=== PATIENT | female | born 1970 | race Caucasian/White ===

== ENCOUNTER → 2018-07-09 14:38 | Outpatient (CLI) | payer OTHER, SELFPAY ==
[2016-02-18 13:38] VITALS: BMI 46.0
[2018-07-09 15:53] LABS: Absolute Lymphocyte Count 2.04 X10^3/ul (0.83-4.51); Absolute Neutrophil Count 5.2 X10^3/uL (2.0-7.7); Basophil# 0.05 X10^3/uL; Basophil% 0.6 % (0-1); Eosinophil# 0.31 X10^3/uL; Eosinophils% 3.8 % (0-5); Hematocrit 42.5 % (37-47); Hemoglobin 14.2 g/dl (12.0-15.0); Lymphocyte # 2.04 X10^3/ul (4.0); Mean Corp Hgb Conc 33.4 g/gl (32-36); Mean Corpuscular Hgb 29.5 pg (27.0-32.0); Mean Corpuscular Volume 88.2 fL (81-99); Mean Platelet Vol. 10.4 fl (6.2-12.0); Monocyte# 0.58 X10^3/uL; Monocyte% 7.1 % (0-10); Neutrophil # 5.17 X10^3/uL (2.7-7.7); Neutrophil % 63.3 % (47-70); Platelet Count 249 K/mm3 (150-450); RBC Distribution Width CV 13.6 % (11.6-14.6); RBC Distribution Width SD 43.8 fl (35.1-43.9); Red Blood Count 4.82 M/mm3 (4.2-5.4); White Blood Count 8.2 K/mm3 (4.4-11.0)
[2018-07-09 16:03] LABS: POSITIVE COUNT NO; POSITIVE DIFFERENTIAL NO; POSITIVE MORPHOLOGY NO
[2018-07-09 16:30] LABS: ALB/GLOB Ratio 0.9 RATIO (0.9-2.4); AST(SGOT) 13 U/L (15-37); Alanine Aminotransfer ALT/SGPT 20 U/L (13-56); Albumin, Serum 3.8 g/dL (3.2-5.0); Alkaline Phosphatase 61 U/L (45-117); Anion Gap 6 (5-15); BUN 14 mg/dL (7-18); BUN/Creat Ratio 23.6 RATIO (10-20); Calcium,Total 9.6 mg/dL (8.5-10.1); Chloride 104 mmol/L (98-107); Creatinine, Serum 0.59 mg/dL (0.55-1.02); EST Glomerular Filtration Rate 114 mL/min (>60); Est Glom Filt Rate - Afr Amer 138 mL/min (>60); Globulin 4.1 g/dL (2.2-4.2); Glucose 96 mg/dL (74-106); Protein, Total 7.9 g/dL (6.4-8.2); Sodium Level 141 mmol/L (136-145)
== END ==
PROVIDERS: Visit Provider Family Medicine
DX: R10.9 Unspecified abdominal pain (principal)
CPT/HCPCS: 36415; 80053; 85025

== ENCOUNTER → 2018-07-10 09:53 | Outpatient (CLI) | payer OTHER, SELFPAY ==
[2016-02-18 13:38] VITALS: BMI 46.0
--- NOTE | 2018-07-10 10:02 | US_ITS ---
STUDY: ABDOMINAL ULTRASOUND - RIGHT UPPER QUADRANT REASON FOR VISIT: Female, 48 years old. Epigastric pain TECHNIQUE: Ultrasound evaluation of the right upper quadrant was performed with real-time and static dill-scale imaging. TECHNICAL QUALITY: Adequate. COMPARISON: None. FINDINGS: Liver: The liver measures 18.7 cm. There is increased echogenicity consistent with fatty infiltration. The bile ducts are within normal limits. There is hepatic color flow. The direction of portal flow is hepatopetal. There is no demonstrated mass lesion. Gallbladder: Normal distended gallbladder. The gallbladder wall measures 2.2 mm. There is a negative sonographic 's sign. There is no pericholecystic fluid. There are no gallstones. Common Bile Duct (C.B.D.): The common bile duct measures 2.9 mm. Pancreas: Normal size of the head, body and tail of the pancreas. There is normal echogenicity of the pancreas. There is no demonstrated pancreatic mass or cyst. Right Kidney: Normal size of the right kidney. The right kidney measures 10.9 x 5.4 x 5.2 cm. Normal renal cortex. The right cortex measures 1.5 cm. There is no demonstrated renal mass or cyst. There is no right hydronephrosis. US/Abdomen Limited IMPRESSION: There is fatty infiltration of the liver. There is NO cholelithiasis, cholecystitis or biliary ductal dilatation. Electronically Signed: Manuel Sim MD at 5:43 EDT , Service support ,
== END ==
PROVIDERS: Family Provider Family Medicine; PCP Family Medicine; Referring Provider Family Medicine; Visit Provider Family Medicine
DX: R10.9 Unspecified abdominal pain (principal)
CPT/HCPCS: 76705

== ENCOUNTER → 2018-08-05 | Outpatient (CLI) | payer OTHER, SELFPAY ==
[2016-02-18 13:38] VITALS: BMI 46.0
--- NOTE | 2018-08-05 13:16 | RAD_ITS ---
STUDY: X-RAY - LEFT HAND, ATTENTION FIRST FINGER REASON FOR EXAM: Female, 48 years old. Base of thumb pain TECHNIQUE: 3 view(s) of the finger were obtained. COMPARISON: None. FINDINGS: There are mild degenerative changes of the first metacarpal greater multangular joint. There is an old chip fracture of the base of the first distal phalanx. The soft tissues are within normal limits. RAD/Finger(s) Min 2 Views IMPRESSION: Mild degenerative changes of the first metacarpal greater multangular joint. Old chip fracture of the base of the first distal phalanx. Electronically Signed: Dwayne Santos MD at 23:25 EDT , Service support ,
--- NOTE | 2018-08-05 13:16 | RAD_ITS ---
STUDY: X-RAY - RIGHT HAND, ATTENTION FIRST FINGER REASON FOR EXAM: Female, 48 years old. Base of thumb pain TECHNIQUE: 3 view(s) of the finger were obtained. COMPARISON: None. FINDINGS: There are mild arthritic changes of the first metacarpal greater multangular joint. There are mild arthritic changes of the first metacarpophalangeal joint. There is no evidence of fracture or dislocation. RAD/Finger(s) Min 2 Views IMPRESSION: Mild arthritic changes of the first metacarpal greater multangular joint and first metacarpophalangeal joint. Electronically Signed: Dwayne Santos MD at 23:26 EDT , Service support ,
== END | disposition home or self-care (01) ==
LOC: MTRAD 13:12
PROVIDERS: Family Provider Family Medicine; PCP Family Medicine; Referring Provider Family Medicine; Visit Provider Family Medicine
DX: M79.644 Pain in right finger(s) (principal); M79.645 Pain in left finger(s)
CPT/HCPCS: 73140

== ENCOUNTER → 2018-11-17 08:54 | Outpatient (CLI) | payer OTHER, SELFPAY ==
[2018-11-17 10:03] LABS: Absolute Lymphocyte Count 1.85 X10^3/uL (0.83-4.51); Absolute Neutrophil Count 3.3 X10^3/uL (2.0-7.7); Basophil# 0.04 X10^3/uL; Basophil% 0.7 % (0-1); Eosinophil# 0.18 X10^3/uL; Hematocrit 42.6 % (37-47); Hemoglobin 13.8 g/dL (12.0-15.0); Lymphocyte # 1.85 X10^3/ul (4.0); Lymphocyte % 30.9 % (19-41); Mean Corp Hgb Conc 32.4 g/dL (32-36); Mean Corpuscular Hgb 28.7 pg (27.0-32.0); Mean Corpuscular Volume 88.6 fL (81-99); Mean Platelet Vol. 10.4 fl (6.2-12.0); Monocyte# 0.56 X10^3/uL; Monocyte% 9.4 % (0-10); NRBC Flagged by Analyzer 0 % (0-5); Neutrophil # 3.34 X10^3/uL (2.7-7.7); Neutrophil % 55.8 % (47-70); Platelet Count 202 K/mm3 (150-450); RBC Distribution Width CV 13.9 % (11.6-14.6); Red Blood Count 4.81 M/mm3 (4.2-5.4)
[2018-11-17 10:04] LABS: Erythrocyte Sedimentation Rate 8 mm/hr (0-20)
[2018-11-17 10:34] LABS: Anion Gap 4 (5-15); BUN 10 mg/dL (7-18); BUN/Creat Ratio 15.4 RATIO (10-20); CRP, High Sensitivity Cardiac 5.08 mg/L; Chloride 106 mmol/L (98-107); Creatinine, Serum 0.65 mg/dL (0.55-1.02); EST Glomerular Filtration Rate 103 mL/min (>60); Est Glom Filt Rate - Afr Amer 124 mL/min (>60); Glucose 93 mg/dL (74-106); Potassium 3.9 mmol/L (3.5-5.1); Sodium Level 141 mmol/L (136-145); Thyroid Stim Hormone (TSH) 2.59 uIU/mL (0.358-3.74)
[2018-11-18 16:06] LABS: ANTINUCLEAR ANTIBODIES DIRECT Negative (Negative)
== END ==
PROVIDERS: Family Provider Family Medicine; PCP Family Medicine; Referring Provider Family Medicine; Visit Provider Family Medicine
DX: I10 Essential (primary) hypertension (principal); R53.83 Other fatigue; M25.50 Pain in unspecified joint
CPT/HCPCS: 36415; 80048; 83735; 84443; 85025; 85652; 86038; 86141

== ENCOUNTER → 2019-01-07 10:05 | Outpatient (CLI) | payer OTHER, SELFPAY ==
--- NOTE | 2019-01-07 10:08 | BI_ITS ---
MAMMOGRAPHY - BILATERAL SCREENING - CAD and LEON IMAGES REASON FOR EXAM: Female, 48 years old. Routine annual screening examination. PERTINENT HISTORY: Non-contributory. TECHNIQUE: Digital examination. Mediolateral oblique (MLO) and craniocaudad (CC) views of both breasts were obtained. CAD: CAD was performed on this study. Leon images were reviewed. COMPARISON: Mammogram dated 06/17/2017 03/13/2016 FINDINGS: Breast Composition: The breasts are almost entirely fatty. There are no suspicious masses, suspicious cluster of microcalcifications, architectural distortion or secondary sign of malignancy identified in either breast. Focal fibroglandular densities are noted bilaterally. No other significant abnormalities are identified. CAD and Leon were reviewed. BI/SCREEN MAMM (CAD) W/LEON BILAT IMPRESSION: Stable bilateral screening mammogram. ASSESSMENT CATEGORY: BIRADS Category 2: Benign. A letter regarding these results will be sent to the patient by the facility within 30 days. FOLLOW UP RECOMMENDATION: Yearly follow up mammogram recommended. (A) Approximately 10% of breast cancers are not detected by mammography. A normal mammogram should not delay biopsy of a clinically suspicious abnormality. [id number] Electronically Signed: Yas Parks DO at 10:25 EST Tel , Service support ,
== END ==
PROVIDERS: Family Provider Family Medicine; PCP Family Medicine; Referring Provider Family Medicine; Visit Provider Family Medicine
DX: Z12.31 Encounter for screening mammogram for malignant neoplasm of breast (principal)
CPT/HCPCS: 77063; 77067

== ENCOUNTER 2019-08-11 19:18 | Emergency (ER) | payer OTHER, SELFPAY ==
[2019-07-08 09:39] VITALS: BMI 46.0
[2019-08-11 19:20] VITALS: BP 118/63; PULSE 108; RESP 18; TEMP 39.3; O2SAT 93; BMI 42.1
--- NOTE | 2019-08-11 19:29 | EKG12_ITS ---
Test Reason : FEVER Blood Pressure : / mmHG Vent. Rate : 092 BPM Atrial Rate : 092 BPM P-R Int : 146 ms QRS Dur : 090 ms QT Int : 354 ms P-R-T Axes : 019 001 007 degrees QTc Int : 437 ms Normal sinus rhythm Nonspecific ST abnormality Abnormal ECG Confirmed by KATLYN SCOTT ([id number]), writer editor CHICA ANDERSON ([id number]) on 08/18/2019 8:09:08 AM Referred By: DANYELLE Confirmed By:KATLYN SCOTT
--- NOTE | 2019-08-11 19:30 | ED.DCSUM_ITS ---
History of Present Illness Chief Complaint: Fever Informant: Patient Onset: Days Context: Gradual Onset Timing: Continuous Current Severity: Moderate Maximum Severity: Moderate Narrative: The patient is a 49-year-old female who is otherwise healthy the presents to the emergency department fever, chills, nausea, generalized malaise. The patient states over the weekend, she had some dysuria and frequency. She states that is since resolved, but she is now begun to have fevers and chills. She has been nauseated with decreased appetite. She denies any cough or shortness of breath. She has no known exposure to COVID-19. She states she is otherwise been in her normal state of health. Prior similar symptoms: No Recent Illness/Hospitalization: No Past Medical History - Allergies and Home Meds Allergies/Adverse Reactions: Allergies No Known Allergies Allergy (Verified 08/11/19 19:19) Primary Care Physician: Darryl Amezcua MD [Primary Care Provider] - Prior records reviewed: Yes Past Medical History: - - Neuropathy Surgical History: noncontributory Smoking Status: Former smoker Review of Systems General: Reports: Chills, Fever. Denies: Sweats Eyes: Denies: Visual changes - bilaterally, Diplopia ENT: Denies: Rhinorrhea, Sore throat Cardiovascular: Denies: Chest pain, Palpitations Respiratory: Denies: Dyspnea, Cough, Dyspnea on exertion Gastrointestinal: Reports: Nausea. Denies: Abdominal pain, Vomiting, Diarrhea, Melena, Hematochezia Genitourinary: Reports: Dysuria, Frequency. Denies: Hematuria Musculoskeletal: Denies: Back pain, Extremity Pain Skin: Denies: Rash, Wounds Neurological: Denies: Headache, Weakness, Numbness Physical Exam Vital Signs/Narrative: Vital Signs Temp Pulse Resp BP Pulse Ox 08/11/19 19:20 102.8 F H 108 H 18 118/63 93 Inital Vital Signs reviewed: Yes General: Well nourished, Well developed, No Acute Distress Head: Normocephalic, Atraumatic Eyes: Perrl, EOMI ENT: Moist mucous membranes, No rhinorrhea Neck: Supple, Nontender Cardiovascular: Regular rate, Regular rhythm, No murmurs Respiratory: No distress, CTA bilaterally, Chest nontender Abdomen: Soft, Nontender, Nondistended, Normal bowel sounds Back: Nontender, Normal Inspection Extremities: Nontender, No edema Skin: Normal color, No rash Neurological: Alert, Oriented x3, Cranial nerves II-XII grossly intact, Normal Strength, Normal Sensation Psychological: Normal affect, Normal Mood Diagnostic/Tx/Re-eval Clinical Impression(s) from Imaging Studies Chest X-Ray 08/11/19 20:10 IMPRESSION: Normal x-ray examination of the chest. Electronically Signed: Cisco Hall, at 20:43 EDT Tel , Service support , Abnormal Lab Results 08/11/19 08/11/19 08/11/19 19:45 19:45 19:45 WBC 6.0 RBC 4.83 Hgb 13.7 Hct 42.2 MCV 87.4 MCH 28.4 MCHC 32.5 RDW Std Deviation 44.9 H RDW Coeff of Fe 13.9 Plt Count 118 L MPV 10.1 Immature Gran % (Auto) 0.300 Neut % (Auto) 82.5 H Lymph % (Auto) 5.2 L Blount % (Auto) 11.6 H Eos % (Auto) 0.2 Baso % (Auto) 0.2 Absolute Neuts (auto) 4.9 Absolute Lymphs (auto) 0.31 L Nucleated RBC % 0 Differential Comment SCANNED PT 13.9 INR 1.1 APTT 29.2 Sodium 140 Potassium 3.1 L Chloride 105 Carbon Dioxide 27.0 Anion Gap 8 BUN 8 Creatinine 0.79 Estim Creat Clear Calc 95.22 Est GFR (MDRD) Af Amer 99 Est GFR (MDRD) Non-Af 82 BUN/Creatinine Ratio 10.2 Glucose 114 H Lactic Acid Calcium 8.7 Total Bilirubin 1.90 H AST 20 ALT 22 Alkaline Phosphatase 63 Total Protein 7.7 Albumin 3.4 Globulin 4.3 H Albumin/Globulin Ratio 0.8 L Urine Color Urine Clarity Urine pH Ur Specific [place] Urine Protein Urine Glucose (UA) Urine Ketones Urine Occult Blood Urine Nitrite Urine Bilirubin Urine Urobilinogen Ur Leukocyte Esterase Urine RBC Urine WBC Ur Squamous Epith Cells Urine Bacteria Urine Mucus COVID-19 (MARISELA) 08/11/19 08/11/19 08/11/19 19:45 19:55 21:30 WBC RBC Hgb Hct MCV MCH MCHC RDW Std Deviation RDW Coeff of Fe Plt Count MPV Immature Gran % (Auto) Neut % (Auto) Lymph % (Auto) Blount % (Auto) Eos % (Auto) Baso % (Auto) Absolute Neuts (auto) Absolute Lymphs (auto) Nucleated RBC % Differential Comment PT INR APTT Sodium Potassium Chloride Carbon Dioxide Anion Gap BUN Creatinine Estim Creat Clear Calc Est GFR (MDRD) Af Amer Est GFR (MDRD) Non-Af BUN/Creatinine Ratio Glucose Lactic Acid 1.3 Calcium Total Bilirubin AST ALT Alkaline Phosphatase Total Protein Albumin Globulin Albumin/Globulin Ratio Urine Color Yellow Urine Clarity Sl. Cloudy Urine pH 6.5 Ur Specific [place] 1.005 Urine Protein 30 H Urine Glucose (UA) Normal Urine Ketones Negative Urine Occult Blood 25 H Urine Nitrite Positive H Urine Bilirubin Negative Urine Urobilinogen 4 H Ur Leukocyte Esterase 500 H Urine RBC 5-10 SEEN Urine WBC 50-100 SEEN Ur Squamous Epith Cells 0-5 SEEN Urine Bacteria 3+ Urine Mucus 0 SEEN COVID-19 (MARISELA) Negative - Medical Decision Making The patient presents to the emergency department fever and generalized malaise. She was febrile here. She was not hypotensive. Sepsis work-up was pursued. Chest x-ray shows no and so volume overload. COVID testing was obtained was negative. Patient does not have leukocytosis. Lactic acid was normal. Her urine does show evidence of infection. Clinically, I do feel that she likely has pyelonephritis. On reevaluation, her fever has resolved. She is feeling improved. She wants to attempt outpatient therapy. I do feel that this is reasonable. She has reassuring vital signs, normal lactic acid, and otherwise normal lab work. She is given IV Rocephin and will be continued on Bactrim as an outpatient. She was counseled on concerning symptoms and appropriate follow- up. I did tell her that I would like her to be seen within the next 24 to 48 hours, or if she is having a worsening symptoms return to the emergency department. She is comfortable with this plan of care. Impression 1. Pyelonephritis ED Disposition - Plan for ED Patient: Instructions: ED Pyelonephritis Female Adult Prescriptions: Smz/Tmp Ds [Bactrim Ds] 1 tab PO BID #14 tab Prescription Printed Referrals: Darryl Amezcua MD [Primary Care Provider] -
--- NOTE | 2019-08-11 19:39 | ED.RN ---
NO OLD EKGS IN MUSE
[2019-08-11 19:48] VITALS: BP 111/65; PULSE 97; RESP 21; TEMP 39.3; O2SAT 93
[2019-08-11] MEDS: 0.9% Normal Saline 1,000 ML 999 ML IV (19:54)
[2019-08-11] MEDS: Ondansetron 4 MG/2 ML Vial IV (19:54)
[2019-08-11] MEDS: Acetaminophen 500 MG Tablet 1000 MG PO (19:55)
--- NOTE | 2019-08-11 20:10 | RAD_ITS ---
STUDY: X-RAY CHEST REASON FOR EXAM: Female, 49 years old. FEVER,HERRON, CHILS,DIZZZINESS TECHNIQUE: Frontal view of the chest COMPARISON: None. FINDINGS: Inspiratory volumes are low The lungs are clear and expanded. There is no demonstrated pleural abnormality. Normal size heart. Normal mediastinum and jos. Normal visualized pulmonary arteries. Normal visualized aortic arch and descending thoracic aorta. Normal visualized thoracic spine. Normal visualized ribs, clavicles, and shoulders. There is no demonstrated abnormality of the visualized soft tissue structures of the upper abdomen. RAD/Chest 1 View (Portable) IMPRESSION: Normal x-ray examination of the chest. Electronically Signed: Cisco Hall, at 20:43 EDT Tel , Service support ,
[2019-08-11 20:17] LABS: Absolute Lymphocyte Count 0.31 X10^3/uL (0.83-4.51); Absolute Neutrophil Count 4.9 X10^3/uL (2.0-7.7); Basophil# 0.01 X10^3/uL; Basophil% 0.2 % (0-1); Eosinophil# 0.01 X10^3/uL; Eosinophils% 0.2 % (0-5); Hematocrit 42.2 % (37-47); Hemoglobin 13.7 g/dL (12.0-15.0); Lymphocyte # 0.31 X10^3/ul (4.0); Lymphocyte % 5.2 % (19-41); Mean Corp Hgb Conc 32.5 g/dL (32-36); Mean Corpuscular Hgb 28.4 pg (27.0-32.0); Mean Corpuscular Volume 87.4 fL (81-99); Mean Platelet Vol. 10.1 fl (6.2-12.0); Monocyte# 0.69 X10^3/uL; Monocyte% 11.6 % (0-10); NRBC Flagged by Analyzer 0 % (0-5); Neutrophil # 4.92 X10^3/uL (2.7-7.7); Neutrophil % 82.5 % (47-70); POSITIVE DIFFERENTIAL YES; Platelet Count 118 K/mm3 (150-450); RBC Distribution Width CV 13.9 % (11.6-14.6); RBC Distribution Width SD 44.9 fl (35.1-43.9); Red Blood Count 4.83 M/mm3 (4.2-5.4)
[2019-08-11 20:25] LABS: Differential Indicated SCAN CRITERIA MET
[2019-08-11 20:26] LABS: International Normalized Ratio 1.1; Partial Thromboplast Time 29.2 Seconds (24.1-36.2); Prothrombin Time (Protime)PT. 13.9 SECONDS (11.7-14.9)
[2019-08-11 20:29] LABS: ALB/GLOB Ratio 0.8 RATIO (0.9-2.4); AST(SGOT) 20 U/L (15-37); Alanine Aminotransfer ALT/SGPT 22 U/L (13-56); Albumin, Serum 3.4 g/dL (3.2-5.0); Alkaline Phosphatase 63 U/L (45-117); Anion Gap 8 (5-15); BUN 8 mg/dL (7-18); BUN/Creat Ratio 10.2 RATIO (10-20); Calcium,Total 8.7 mg/dL (8.5-10.1); Chloride 105 mmol/L (98-107); Creatinine, Serum 0.79 mg/dL (0.55-1.02); EST Glomerular Filtration Rate 82 mL/min (>60); Est Glom Filt Rate - Afr Amer 99 mL/min (>60); Estimated Creatinine Clearance 95.22 ml/min; Globulin 4.3 g/dL (2.2-4.2); Glucose 114 mg/dL (74-106); Potassium 3.1 mmol/L (3.5-5.1); Protein, Total 7.7 g/dL (6.4-8.2); Sodium Level 140 mmol/L (136-145)
[2019-08-11 20:40] LABS: Lactic Acid 1.3 mmol/L (0.4-1.9)
[2019-08-11 20:48] LABS: Differential Comment SCANNED
[2019-08-11 21:22] VITALS: BP 96/57; PULSE 85; RESP 17; TEMP 37.1; O2SAT 95
[2019-08-11 21:29] VITALS: TEMP 37.1
[2019-08-11 21:34] LABS: Probe Check PASS; Specimen Processing Control PASS
[2019-08-11 21:42] LABS: Mucous, Urine 0 SEEN /hpf (<or=2+)
[2019-08-11 21:49] LABS: Color, Urine Yellow (Yellow); Glucose, Dipstick Normal (Normal); Ketone-Dipstick Negative (Negative); Leukocyte Esterase-Dipstick 500 /ul (Negative); Nitrite-Dipstick Positive (Negative); Occult Blood-Urine 25 /ul (Negative); Protein-Dipstick 30 mg/dl (Negative); Specific Gravity, Urine 1.005 (1.002-1.030); Urine Bilirubin Dipstick Negative (Negative); Urine Clarity Sl. Cloudy (Clear); Urine Urobilinogen 4 mg/dl (Normal); Urine pH 6.5 (5.0 - 8.0)
[2019-08-11 21:58] LABS: Bacteria 3+ /hpf (None Seen); Red Blood Cells-Urine 5-10 SEEN /hpf (0-5); Squamous Epithelial Cells - UA 0-5 SEEN /hpf (5-10); White Blood Cells 50-100 SEEN /hpf (0-5)
[2019-08-11 22:00] VITALS: BP 98/58; PULSE 83; RESP 19; TEMP 37.2; O2SAT 94
[2019-08-11] MEDS: Ceftriaxone 1 GM/50 ML BAG IV (22:24)
[2019-08-11 23:07] VITALS: BP 97/69; PULSE 72; RESP 16; O2SAT 98
== END 2019-08-11 23:10 | disposition home or self-care (01) ==
PROVIDERS: Emergency Provider Emergency Medicine; PCP Family Medicine
DX: N12 Tubulo-interstitial nephritis, not specified as acute or chronic (principal); G62.9 Polyneuropathy, unspecified; Z87.891 Personal history of nicotine dependence
CPT/HCPCS: 36415; 71045; 80053; 81001; 83605; 85025; 85610; 85730; 87040; 87077; 87086; 87088; 87186; 87635; 93005; 96361; 96365; 96375; 99284; G2023; J7030; J7050; A4216; J2405; U0003

== ENCOUNTER → 2020-04-21 13:13 | Outpatient (CLI) | payer OTHER, SELFPAY ==
[2020-04-21 18:01] LABS: Mucous, Urine 0 SEEN /hpf (<or=2+)
[2020-04-21 18:57] LABS: Color, Urine Yellow (Yellow); Glucose, Dipstick Normal (Normal); Ketone-Dipstick Negative (Negative); Leukocyte Esterase-Dipstick 100 /ul (Negative); Nitrite-Dipstick Negative (Negative); Occult Blood-Urine 250 /ul (Negative); Protein-Dipstick Negative (Negative); Urine Bilirubin Dipstick Negative (Negative); Urine Clarity Clear (Clear); Urine Urobilinogen Normal (Normal)
[2020-04-21 19:07] LABS: Red Blood Cells-Urine 0-5 SEEN /hpf (0-5); White Blood Cells 0-5 SEEN /hpf (0-5)
[2020-04-21 19:08] LABS: Bacteria 2+ /hpf (None Seen); Squamous Epithelial Cells - UA 0-5 SEEN /hpf (5-10)
== END ==
PROVIDERS: PCP Family Medicine; Visit Provider Family Medicine
DX: N30.91 Cystitis, unspecified with hematuria (principal)
CPT/HCPCS: 81001; 87077; 87086; 87088; 87186

== ENCOUNTER → 2020-06-03 09:41 | Outpatient (CLI) | payer OTHER, SELFPAY ==
--- NOTE | 2020-06-03 09:45 | RAD_ITS ---
STUDY: X-RAY - RIGHT KNEE REASON FOR EXAM: Lateral right knee pain, no specific injury. TECHNIQUE: 4 view(s) of the knee. COMPARISON: None. FINDINGS: Normal visualized distal femur. Normal visualized proximal tibia and fibula. Normal proximal tibiofibular articulation. Normal medial femorotibial compartment. Normal lateral femorotibial compartment. There are marginal osteophytes and severe joint space narrowing of the patellofemoral articulation. The soft tissue structures are unremarkable. RAD/Knee 4 or More Views IMPRESSION: Patellofemoral arthrosis. Electronically Signed: Mega Vo MD at 12:52 EDT Tel , Service support ,
== END ==
PROVIDERS: PCP Family Medicine; Referring Provider Family Medicine; Visit Provider Family Medicine
DX: M25.561 Pain in right knee (principal)
CPT/HCPCS: 73564

== ENCOUNTER → 2020-06-06 09:12 | Outpatient (CLI) | payer OTHER, SELFPAY ==
[2020-06-06 10:35] LABS: Anion Gap 5 (5-15); BUN 13 mg/dL (7-18); BUN/Creat Ratio 20.8 RATIO (10-20); Calcium,Total 9.1 mg/dL (8.5-10.1); Chloride 105 mmol/L (98-107); Cholesterol 165 mg/dL (200); Creatinine, Serum 0.62 mg/dL (0.55-1.02); EST Glomerular Filtration Rate 107 mL/min (>60); Est Glom Filt Rate - Afr Amer 129 mL/min (>60); Glucose 98 mg/dL (74-106); High Density Lipoprotein 52 mg/dL; Potassium 3.6 mmol/L (3.5-5.1); Sodium Level 139 mmol/L (136-145); Triglycerides 151 mg/dL; Very Low Density Lipoprotein 30 mg/dL (5-40)
== END ==
PROVIDERS: PCP Family Medicine; Visit Provider Family Medicine
DX: I10 Essential (primary) hypertension (principal)
CPT/HCPCS: 36415; 80048; 80061

== ENCOUNTER → 2021-02-13 08:49 | Outpatient (CLI) | payer OTHER, SELFPAY ==
[2021-02-13 11:26] LABS: Anion Gap 5 (5-15); BUN 13 mg/dL (7-18); BUN/Creat Ratio 24.6 RATIO (10-20); Calcium,Total 9.1 mg/dL (8.5-10.1); Chloride 106 mmol/L (98-107); Cholesterol 183 mg/dL (200); Creatinine, Serum 0.53 mg/dL (0.55-1.02); EST Glomerular Filtration Rate 129 mL/min (>60); Est Glom Filt Rate - Afr Amer 156 mL/min (>60); Glucose 90 mg/dL (74-106); High Density Lipoprotein 58 mg/dL; Potassium 3.5 mmol/L (3.5-5.1); Sodium Level 138 mmol/L (136-145); Triglycerides 168 mg/dL; Very Low Density Lipoprotein 34 mg/dL (5-40)
== END ==
PROVIDERS: PCP Family Medicine; Visit Provider Family Medicine
DX: I10 Essential (primary) hypertension (principal)
CPT/HCPCS: 36415; 80048; 80061

== ENCOUNTER 2021-04-03 08:49 | Outpatient (CLI) | payer OTHER, SELFPAY ==
--- NOTE | 2021-04-03 08:51 | BI_ITS ---
MAMMOGRAPHY - BILATERAL SCREENING REASON FOR EXAM: Female, 51 years old. Routine annual screening examination. PERTINENT HISTORY: Grandmother with breast cancer. TECHNIQUE: Digital bilateral breast leon (3D mammographic acquisition) in the CC and MLO projections. 2-D mediolateral oblique (MLO) and craniocaudad (CC) views of both breasts were obtained. CAD: Full Field Digital Mammography with Computer Added Detection was performed. COMPARISON: Comparison is made with prior study dated 01/07/2019. FINDINGS: Breast Composition: The breasts are almost entirely fatty. There are no dominant masses or suspicious calcifications. No other significant abnormalities are identified. There has been no significant change since the prior study. BI/SCRN MAMM (CAD)W/LEON BILAT IMPRESSION: Stable bilateral screening mammogram. Yearly follow-up mammogram recommended. (A) ASSESSMENT CATEGORY: BIRADS Category 1: Negative. A letter regarding these results will be sent to the patient by the facility within 30 days. Approximately 10% of breast cancers are not detected by mammography. A normal mammogram should not delay biopsy of a clinically suspicious abnormality. [id number] Electronically Signed: Prieto Jon MD at 10:23 EST ,
== END 2021-04-03 23:59 | disposition home or self-care (01) ==
LOC: OPBI 08:50
PROVIDERS: PCP Family Medicine; Referring Provider Family Medicine; Visit Provider Family Medicine
DX: Z12.31 Encounter for screening mammogram for malignant neoplasm of breast (principal); Z80.3 Family history of malignant neoplasm of breast
CPT/HCPCS: 77063; 77067

== ENCOUNTER → 2021-07-24 | Outpatient (CLI) | payer OTHER, SELFPAY ==
[2021-07-24 10:49] LABS: Anion Gap 6 (5-15); BUN 15 mg/dL (7-18); Chloride 105 mmol/L (98-107); Cholesterol 170 mg/dL (200); Creatinine, Serum 0.62 mg/dL (0.55-1.02); EST Glomerular Filtration Rate 107 mL/min (>60); Est Glom Filt Rate - Afr Amer 129 mL/min (>60); Glucose 109 mg/dL (74-106); High Density Lipoprotein 49 mg/dL; Potassium 3.8 mmol/L (3.5-5.1); Sodium Level 137 mmol/L (136-145); Triglycerides 166 mg/dL; Very Low Density Lipoprotein 33 mg/dL (5-40)
== END | disposition home or self-care (01) ==
LOC: MFPLAB 08:41
PROVIDERS: PCP Family Medicine; Visit Provider Family Medicine
DX: I10 Essential (primary) hypertension (principal)
CPT/HCPCS: 36415; 80048; 80061

== ENCOUNTER → 2021-12-27 | Outpatient (CLI) | payer OTHER, SELFPAY ==
[2021-12-27 11:06] LABS: Anion Gap 5 (5-15); BUN 10 mg/dL (7-18); BUN/Creat Ratio 16.4 RATIO (10-20); Calcium,Total 9.2 mg/dL (8.5-10.1); Chloride 105 mmol/L (98-107); Cholesterol 190 mg/dL (200); Creatinine, Serum 0.61 mg/dL (0.55-1.02); EST Glomerular Filtration Rate 109 mL/min (>60); Est Glom Filt Rate - Afr Amer 132 mL/min (>60); Glucose 95 mg/dL (74-106); High Density Lipoprotein 54 mg/dL; Potassium 3.9 mmol/L (3.5-5.1); Sodium Level 139 mmol/L (136-145); Triglycerides 155 mg/dL; Very Low Density Lipoprotein 31 mg/dL (5-40)
== END | disposition home or self-care (01) ==
LOC: MFPLAB 09:03
PROVIDERS: PCP Family Medicine; Referring Provider Family Medicine; Visit Provider Family Medicine
DX: I10 Essential (primary) hypertension (principal)
CPT/HCPCS: 36415; 80048; 80061

== ENCOUNTER → 2022-02-28 | Outpatient (CLI) | payer OTHER, SELFPAY ==
--- NOTE | 2022-02-28 10:56 | RAD_ITS ---
STUDY: X-RAY - RIGHT KNEE REASON FOR EXAM: Female, 51 years old. Right knee pain. TECHNIQUE: 4 view(s) of the knee. COMPARISON: June 13, 2020. FINDINGS: Normal mineralization. Tricompartmental arthrosis, most marked in the patellofemoral compartment, slightly progressed at all compartments since the prior study. Marked lateral tilt and subluxation of the patella on the sunrise view. Normal soft tissues. RAD/Knee 4 or More Views IMPRESSION: Progression of tricompartmental arthrosis, most marked in the patellofemoral compartment as described. No acute abnormality or erosive changes. Electronically Signed: Reno Nina, at 13:33 EST ,
== END | disposition home or self-care (01) ==
PROVIDERS: PCP Family Medicine; Referring Provider Family Medicine; Visit Provider Family Medicine
DX: M17.11 Unilateral primary osteoarthritis, right knee (principal); S83.011A Lateral subluxation of right patella, initial encounter
CPT/HCPCS: 73564

== ENCOUNTER → 2022-03-20 | Outpatient (CLI) | payer OTHER, SELFPAY ==
--- NOTE | 2022-03-20 09:06 | RAD_ITS ---
INDICATION: PAIN EXAMINATION/TECHNIQUE: X-RAY - XR Spine Lumbar 2 Views COMPARISON: None. FINDINGS: Frontal and lateral views of the lumbar spine were obtained. Mild levocurvature of the lumbar spine. No acute fracture is identified. Degenerative changes are moderate overall and are characterized by multilevel disc narrowing, endplate sclerosis and osteophytic ridging. 2 mm of retrolisthesis of L2 over L3 is presumably related to the degenerative change. RAD/Lumbar Spine 2 or 3 Views IMPRESSION: Moderate degenerative changes. No acute fracture identified. Electronically Signed: Janak Danielle MD at 23:00 EST ,
== END | disposition home or self-care (01) ==
LOC: RAD 09:05
PROVIDERS: PCP Family Medicine; Visit Provider Anesthesiology Pain Medicine
DX: M51.37 Other intervertebral disc degeneration, lumbosacral region (principal); M47.816 Spondylosis without myelopathy or radiculopathy, lumbar region; M51.26 Other intervertebral disc displacement, lumbar region; M51.36 Other intervertebral disc degeneration, lumbar region
CPT/HCPCS: 72100

== ENCOUNTER → 2022-04-23 | Outpatient (CLI) | payer OTHER, SELFPAY ==
--- NOTE | 2022-04-23 14:09 | NEURO ---
NCS and/or EMG Patient Report Ordering Doctor: Jean Perkins DATE OF SERVICE: 04/23/22 Indication: Chronic (onset 2013), progressive, ascending sensory loss in both lower extremities. In addition, history of localized and radicular low back pain. Findings: Nerve conduction studies were performed in the right and left lower extremities. The right peroneal motor study recording the extensor digitorum brevis showed a borderline amplitude, normal distal latency and normal conduction velocity. No conduction block or focal slowing was present across the fibular neck. The right tibial motor study recording the abductor hallucis brevis showed a borderline amplitude, normal distal latency and normal conduction velocity. The right sural sensory response was absent. The right superficial peroneal sensory response was absent. The right medial plantar response was absent. The left peroneal motor study recording the extensor digitorum brevis showed a normal amplitude, normal distal latency and normal conduction velocity. No conduction block or focal slowing was present across the fibular neck. The left tibial motor study recording the abductor hallucis brevis showed a borderline amplitude, normal distal latency and normal conduction velocity. The left sural sensory response was absent. The left superficial peroneal sensory response was absent. The left medial plantar response was absent. Needle EMG of the right lower extremity and lumbar paraspinal muscles was performed. No denervation was present in any muscle. Motor units in the extensor hallucis brevis and tibialis anterior were slightly large and polyphasic with normal recruitment. The medial gastrocnemius was relatively normal morphology, but with fair activation. The vastus medial revealed normal motor unit morphology, activation and recruitment patterns. The lumbar paraspinals and tensor fascia latae could not be adequately sampled with a 50 mm electrode. Impression: This is an abnormal study. 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 A superimposed lumbosacral radiculopathy cannot be excluded by this study. Clinical and radiographic correlation is recommended. Catracho Lancaster D.O. Multi Select Codes Neurology Neurology Interp Codes: 85874-66 Musc test done w/n test comp (interp) and 26145-39 Nrv cndj test 9-10 studies (interp)
== END | disposition home or self-care (01) ==
LOC: PSN 12:17
PROVIDERS: PCP Family Medicine; Visit Provider Anesthesiology Pain Medicine
DX: M54.16 Radiculopathy, lumbar region (principal); G62.9 Polyneuropathy, unspecified
CPT/HCPCS: 95886; 95911

== ENCOUNTER → 2022-05-02 | Outpatient (CLI) | payer OTHER, SELFPAY ==
--- NOTE | 2022-05-02 10:47 | MRI_ITS ---
STUDY: MRI RIGHT KNEE REASON FOR EXAM: Female, 52 years old. knee popped x2,, pain posterior TECHNIQUE: Standardized fat and water weighted pulse sequences were obtained in all 3 orthogonal planes. COMPARISON: X-ray of the right knee dated February 28, 2022 FINDINGS: A complex degenerative tear is present in the inner one third aspect of the posterior horn of medial meniscus with extension into the root insertion. The anterior horn and body are normal. There is diffuse, greater than 50% thickness articular cartilage loss of the medial femorotibial compartment. Full-thickness loss of cartilage is present in the central weightbearing aspect of the medial femoral condyle. There is reactive marrow edema of the medial femoral condyle and tibial plateau. Normal medial collateral ligamentous complex (MCL). Normal distal semimembranosus, gracilis and semitendinosus tendons. Normal lateral meniscus. There is diffuse, less than 50% thickness articular cartilage loss of the lateral femorotibial compartment. There is mild osteoarthritic spur formation of the lateral knee compartment. Mild subchondral cystic changes are also present in the lateral femoral condyle. Normal proximal tibiofibular articulation. Normal lateral collateral (fibular) ligament. Normal popliteus tendon. Normal biceps femoris tendon. Normal anterior cruciate ligament (ACL). Normal posterior cruciate ligament (PCL). Normal congruent patellofemoral articulation. There is diffuse, full thickness articular cartilage loss of the patellofemoral compartment, as well as bulky osteophyte formation at the periphery of the lateral patellar facet.. Normal medial and lateral patellar retinaculum. Normal quadriceps tendon. Normal patellar tendon. Normal Hoffa''s fat pad. A moderate size joint effusion is present. Mild synovitis is also seen along the joint capsule. Tiny Foy''s cyst noted. The soft tissues are unremarkable. The otherwise visualized osseous structures are unremarkable. MRI/Lower Ext Joint Only (Routine) IMPRESSION: 1. Severe patellofemoral DJD 2. Moderate size joint effusion 3. Mild capsular synovitis 4. Complex degenerative tear of the posterior horn of medial meniscus Electronically Signed: Trenotn Garcia MD at 15:59 EDT ,
== END | disposition home or self-care (01) ==
LOC: MRI 10:47
PROVIDERS: PCP Family Medicine; Referring Provider Orthopaedic Surgery; Visit Provider Orthopaedic Surgery
DX: M25.561 Pain in right knee (principal); M17.11 Unilateral primary osteoarthritis, right knee
CPT/HCPCS: 73721

== ENCOUNTER 2022-05-07 15:30 | Outpatient (RCR) | payer OTHER, SELFPAY ==
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
--- NOTE | 2022-05-07 16:00 | HP.PTDCSUM_ITS ---
It has been my pleasure to treat ARABELLA CHRISTINE referred by Dr. Jean Boothe MD, with the diagnosis of BACK PAIN for a total of 8 visit(s). Discharge Date: 05/07/22 Please see the following information for a summary of their discharge status. Subjective: PATIENT REPORTS HER BACK PAIN IS THE SAME NOW IT WAS BEFORE SHE STARTED PT BUT INCREASED PAIN FOR 1-2 DAYS AFTER PT SESSIONS. I FELT LIKE IT WAS LOOSENING ME UP AND LIKE IT WAS DOING SOME GOOD. I LOVED BEING IN THERE. PATIENT REPORTS SHE SAW DR. SHULTZ FOR R KNEE MRI RESULTS THIS MORNING AND SHE AGREED TO R KNEE PARTIAL MENISECTOMY - DATE PENDING. PATIENT REPORTS DR. BOOTHE IS TRYING TO GET APPROVAL OF AN MRI FOR HER BACK. RECENT BACK X-RAY, NCS/EMG AND KNEE MRI RESULTS BELOW: Impression: This is an abnormal study. There is electrophysiologic evidence consistent with a generalized, axonal, sensory- predominant, polyneuropathy. A superimposed lumbosacral radiculopathy cannot be excluded by this study. Clinical and radiographic correlation is recommended. EXAMINATION/TECHNIQUE: X-RAY - XR Spine Lumbar 2 Views. COMPARISON: None. . FINDINGS: Frontal and lateral views of the lumbar spine were obtained. Mild levocurvature of the lumbar spine. No acute fracture is identified. Degenerative changes are moderate overall and are characterized by. multilevel disc narrowing, endplate sclerosis and osteophytic ridging. 2. mm of retrolisthesis of L2 over L3 is presumably related to the. degenerative change. RAD/Lumbar Spine 2 or 3 Views. IMPRESSION: Moderate degenerative changes. No acute fracture identified. . Electronically Signed: Janak Danielle MD. . MRI/Lower Ext Joint Only (Routine). IMPRESSION: 1. Severe patellofemoral DJD. 2. Moderate size joint effusion. 3. Mild capsular synovitis. 4. Complex degenerative tear of the posterior horn of medial meniscus. . Electronically Signed: Trenton Garcia MD. at 15:59 EDT LBP Pain Intensity (Out of 10): 4 R knee Pain Intensity (Out of 10): 7 % Improvement: 0 Objective/Function: PATIENT WAS SEEN TODAY FOR RE-ASSESSMENT OF PROGRESS TOWARD THE SET PT GOALS AND THE NEED FOR FURTHER PHYSICAL THERAPY VS READINESS FOR DISCHARGE. THERE ARE NO SIGNIFICANT CHANGES UPON EXAM TODAY COMPARED TO INITIAL EVAL. PATIENT IS APPROPRIATE FOR PHYSICIAN RE-CHECK AND SHE IS AGREEABLE. SHE ALSO REPORTS SHE PLANS TO HAVE R KNEE SURGERY. UPON EXAM TODAY: THIS PATIENT AMBULATES INDEP'LY INTO PT TODAY WITHOUT ANY ASSISTIVE DEVICES OR LOB BUT WITH DECREASED CADANCE AND MILD LIMP ON R LE. SHE IS YANCY UE DEPENDENT TO TRANSFER FROM SIT TO STANDING BUT ABLE INDEP'LY. Sensory deficit: YANCY LE LIGHT TOUCH SENSATION IS GROSSLY INTACT AND SYMMETRICAL - FEET NT. ROM deficit: DECREASED R KNEE ROM -22 TO 104 DEG FLEX IN SUPINE WITH A HEEL SLIDE (RIGHT KNEE SWELLING AND PAIN WITH AROM TESTING). TIGHT YANCY HIP FLEXORS, YANCY HS'S R>L AND TIGHT YANCY DORSIFLEX. Motor deficit: R LE: HIP 4/5, KNEE 3-/5, ANKLE 5/5. L LE: HIP 4/5, KNEE 4/5, ANKLE 5/5. Dural Signs: NEGATIVE YANCY LE'S. Lumbar mvmt loss: flex - MOD. ext - MOD. R SG - OCHOA. L SG - MOD. PATIENT C/O INCRASED PAIN DURING LUMBAR ROM TESTING ALL PLANES BUT NO WORSE A RESULT. Core strength: POOR. [ End ] Goal 1:: DECREASE C/O LOW BACK AND YANCY LE SX'S. Goal Progress: Not Progressing Goal 2:: IMPROVE PERSONAL CARE, LIFTING, WALKING, SITTING, STANDING, SLEEP, SOCIAL LIFE, TRAVEL AND HOMEMAKING FUNCTION. Goal Progress: Not Progressing Goal 3:: INSTRUCT IN PROPHYLAXIS Goal Progress: Not Progressing Plan: D/C DUE TO LACK OF PROGRESS. PATIENT IS AGREEABLE. If there are questions or concerns regarding this patient's physical therapy, please feel free to call me at [phone]. Thank you for the referral of this patient. Sincerely, Ayah Dodson, PT, Cert MDT Balance/Gait/Functional tests - Balance/Special Test Scores Oswestry Low Back Score: 19
== END 2022-05-07 19:00 | disposition home or self-care (01) ==
LOC: PT 15:30
PROVIDERS: PCP Family Medicine; Referring Provider Anesthesiology Pain Medicine; Visit Provider Anesthesiology Pain Medicine
DX: M54.9 Dorsalgia, unspecified (principal)
CPT/HCPCS: 97112; 97113; 97162; 97164

== ENCOUNTER → 2022-05-22 | Outpatient (CLI) | payer OTHER, SELFPAY ==
[2022-05-22 17:36] LABS: Amphetamine Urine VISTA NEGATIVE (<1000 ng/mL); Barbiturate Urine VISTA NEGATIVE (< 200 ng/mL); Benzodiazepine Urine VISTA NEGATIVE (< 200 ng/mL); Cocaine Urine VISTA NEGATIVE (< 300 ng/mL); Ecstacy Urine VISTA NEGATIVE (< 500 ng/mL); Methadone Urine VISTA NEGATIVE (< 300 ng/mL); PCP Urine VISTA NEGATIVE (< 25 ng/mL); THC Urine VISTA NEGATIVE (< 50 ng/mL); Vista UDS pH Range 4
== END | disposition home or self-care (01) ==
PROVIDERS: PCP Family Medicine; Referring Provider Anesthesiology Pain Medicine; Visit Provider Anesthesiology Pain Medicine
DX: F11.20 Opioid dependence, uncomplicated (principal)
CPT/HCPCS: 80307

== ENCOUNTER 2022-06-01 11:22 | Day surgery (SDC) | payer OTHER, SELFPAY ==
[2022-06-01] MEDS: Lactated Ringers 1,000 ML 15 ML IV (12:00)
[2022-06-01 12:02] VITALS: BP 143/81; PULSE 74; RESP 18; TEMP 36.4; O2SAT 97; BMI 43.5
--- NOTE | 2022-06-01 12:28 | PCM.HP.BLA ---
History and Physical Date of Admission: 06/01/22 ??? Allergy/Adv: No Known Allergies (More??) Close Sign Physical Therapy Discharge Summary (Signed) Ayah Dodson - 05/07/22 16:00 Orthopedics Visit (Signed) Calin Gordon - 05/07/22 10:18 Neurology Assessment (Signed) Tonny, Gary - 04/23/22 14:16 Orthopedics Visit (Signed) Calin Gordon - 04/11/22 09:36 Orthopedics Visit (Signed) Calin Gordon - 03/20/22 07:21 Physical Therapy Evaluation (Signed) Ayah Dodson - 03/19/22 11:59 Orthopedics Visit (Cancelled) Calin Gordon - 03/16/22 08:41 Other Facility Information (Scanned) 04/21/20 13:18 EKG (Scanned) 08/20/19 12:34 ED Discharge Packet (Viewable) 08/11/19 22:45 Electrocardiogram (Signed) Betito Colin - 08/11/19 20:01 ER Physician Documentation (Signed) Ameya Diana - 08/11/19 19:30 BMS Internal Correspondence (Scanned) 07/09/19 09:45 BMS HIPAA (Scanned) 07/08/19 09:14 BMS HIPAA (Scanned) 07/08/19 09:14 BMS HIPAA (Scanned) 07/08/19 09:14 BMS HIPAA (Scanned) 07/08/19 09:14 BMS HIPAA (Scanned) 07/08/19 09:14 BMS HIPAA (Scanned) 07/08/19 09:14 BMS HIPAA (Scanned) 07/08/19 09:14 BMS HIPAA (Scanned) 07/08/19 09:14 BMS HIPAA (Scanned) 07/08/19 09:14 BMS HIPAA (Scanned) 07/08/19 09:14 BMS HIPAA (Scanned) 07/08/19 09:14 BMS HIPAA (Scanned) 07/08/19 09:14 BMS HIPAA (Scanned) 07/08/19 09:14 BMS HIPAA (Scanned) 07/08/19 09:14 BMS HIPAA (Scanned) 07/08/19 09:14 BMS HIPAA (Scanned) 07/08/19 09:14 BMS HIPAA (Scanned) 07/08/19 09:14 BMS HIPAA (Scanned) 07/08/19 09:14 BMS HIPAA (Scanned) 07/08/19 09:14 BMS HIPAA (Scanned) 07/08/19 09:14 BMS HIPAA (Scanned) 07/08/19 09:14 BMS HIPAA (Scanned) 07/08/19 09:14 Orthopedics Visit (Signed) Calin Gordon - 07/08/19 07:48 External Correspondence (Scanned) 06/02/19 10:46 Progress Notes (Scanned) 10/26/18 06:42 Discharge Instructions (Scanned) 10/26/18 06:42 Progress Notes (Scanned) 10/26/18 06:38 Operative Report (Scanned) 10/26/18 06:37 Discharge Summary CONV (Scanned) 09/23/18 07:26 Operative Report (Scanned) 08/27/18 04:01 Discharge Summary CONV (Scanned) 08/27/18 04:01 ED T-Form (Scanned) 02/21/16 12:24 ER Physician Documentation (Signed) José Miguel Davidson - 02/18/16 17:31 ED Discharge Packet (Viewable) 02/18/16 14:28 Addendum [facility] [address] [place] [address] OFFICE VISIT Date of Service:? 05/07/22 MR#: [id number] Acct: [id number] Name:ARABELLA CANELA Rep #: [id number] : 1970 ? ? Provider: Dr. Calin Gordon, DO Age/Sex:? 52/F ? ? Location: [facility] [place] Status: Signed Intake Vital Signs ? 03/16/2309:29 Height 5 ft 11 in Intake Visit Reasons:?right knee Accompanied by: Daughter Is patient in pain?: Yes Pain scale (1-10): 5 Allergies No Known Allergies Allergy (Verified 03/16/22 10:29) Medications duloxetine 60 mg capsule,delayed release 90 mg PO DAILY 02/18/16 [History Confirmed 05/07/22] hydrochlorothiazide 25 mg tablet 25 mg PO DAILY BLOOD PRESSURE 02/18/16 [History Confirmed 05/07/22] gabapentin 600 mg tablet 600 mg PO TID 07/08/19 [History Confirmed 05/07/22] oxybutynin chloride 5 mg tablet 5 mg PO BID 07/08/19 [History Confirmed 05/07/22] cholecalciferol (vitamin D3) 10 mcg (400 unit) capsule 10 mcg PO DAILY 03/16/22 [History Confirmed 05/07/22] meloxicam 7.5 mg tablet 7.5 mg PO DAILY 03/16/22 [History Confirmed 05/07/22] vitamin B complex (B Complex-Vitamin B12 tablet) 1 tab PO DAILY 03/16/22 [History Confirmed 05/07/22] tramadol 50 mg tablet tablet PO 05/07/22 [History Confirmed 05/07/22] PFSH Surgical History? History of delivery History of hysterectomy Social History? Smoking Status:? Former smoker alcohol intake:? never HPI right knee Details: Parts of this documentation were recorded by a scribe, this documentation accurately reflects the service provided and the decisions made by me, Dr. Calin Gordon, DO 05/07/22 0814. ARABELLA CHRISTINE is a 52 year old F here today for? F/U after having MRI of the right knee completed. She states that her right knee still wants to buckle on her and this is very painful when this happens. She has been taking tramadol for her pain which she is given by Pain management for her back. Ortho Exam General General: Yes no acute distress Neurologic: Yes alert and Yes oriented x3 Psychologic: Yes reasonable and appropriate Right Knee Skin/Wound: Yes CDI, No erythema, No ecchymosis and Yes swelling Homans Sign: No 1+: Effusion (GRADE 2) Knee ROM: Yes ROM-Extension -20 to 0 and No ROM-Flexion 0-140 (100) Examination: Yes Med jt line tenderness, No Lat jt line tenderness, Yes Nimisha's Test and No TTP Pes Anserine Stability: NML: Anterior Drawer, NML: Posterior Drawer, NML: Valgus 0, NML: Valgus 30, NML: Varus 0 and NML: Varus 30 Patella Grind: Yes KNEE: pain with Guilherme without click Supplemental Info 05/02/2022 MRI right knee: Complex degenerative tear posterior horn medial meniscus diffuse greater than 50% cartilage loss of the medial femoral compartment full-thickness loss of the central weightbearing aspect of the medial femoral condyle with reactive marrow edema in the medial femoral condyle and tibial plateau, spur formation seen in the lateral compartment with subchondral cystic changes of the lateral femoral condyle.? Diffuse full-thickness cartilage loss the patellofemoral compartment 02/28/2022 x-ray right knee: Advanced patellofemoral arthrosis [id number], there is also spurring noted of the medial and lateral femoral condyles worse on notch view mild lateral tibial plateau but overall preserved joint space of medial and lateral compartments Coding Level of Care Code Off vis,est,level 3 Diagnoses Right knee DJD? M17.11 Tear of medial meniscus of right knee? S83.241A Assessment and Plan Assessment and Plan (1) Right knee DJD: ?Status:?Acute (2) Tear of medial meniscus of right knee: ?Status:?Acute Plan Patient educated that the MRI showed that she has bone on bone arthritis of the medial compartment along with patellofemoral arthritis of the knee. She also has a medial meniscus tear which could be degenerative in nature. Treatment options are do nothing or aspiration with injection or viscosupplementation or right knee arthroscopy for partial medial meniscectomy or TKA but she does need to get her BMI under 40 in order to be a candidate for a knee replacement. Her weight would have to be 285 or below. Discussed knee bracing or PT or why weight program. Reviewed the pre-operative plans with the patient. Risks and benefits of the procedure were fully explained, including but not limited to infection, neurovascular injury, continued pain, arthritis, stiffness, need for further surgery, re-injury, DVT, PE, general risks of anesthesia, and loss of limb or life. The patient understands all the risks and does wish to proceed with written consent for a right knee partial medial meniscectomy along with chondroplasty. She should stop the Meloxicam and all other NSAIDs 7 days prior to surgery. Follow up 2 weeks post op or sooner if pain, swelling, numbness or associated symptoms, or concerns develop.? All questions answered. Patient in agreement of plan. 05/07/22 1018 <Electronically signed by Calin Gordon DO> Date Calin Morejongeovanna BROWN Laurieserafin Signature: Date (if applicable) ? CC:? Dr. Darryl Amezcua MD ~ I have examined the patient and the H&P has been reviewed. There are no clinical changes since date of exam.
[2022-06-01] MEDS: Epinephrine (1 mg/ml) 1 MG/ML VIAL (14:54)
[2022-06-01] MEDS: MethylPREDNISolone Acetate 40 MG/ML Vial IM (14:57)
[2022-06-01] MEDS: Lidocaine 1% /Epi 1:100 (20ml) 20 ML Vial (15:00)
--- NOTE | 2022-06-01 15:17 | OP.PCM_ITS ---
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 with areas of grade 4 medial femoral condyle degenerative posterior horn medial meniscus tear anterior and posterior horn lateral meniscus tear Procedure: Right knee arthroscopic partial medial partial lateral meniscectomy chondroplasty medial femoral condyle Anesthesia: General Estimated blood loss: 5 mL Tourniquet time: 20 minutes 300 mmHg Complications: none Indication for procedure: 52-year-old female with known DJD failed conservative treatment however BMI is 43.5 and did have evidence of meniscus tear the patient did wish to proceed with an elective arthroscopic surgery to attempt to alleviate the symptoms while she continues to work on weight loss to become a candidate for total knee arthroplasty . risk benefits and alternatives of the procedure were reviewed including risk of bleeding infection nerve artery tissue damage need for further surgery continued pain and expected postoperative course. Procedure: The patient was met in the preoperative holding area. The operative extremity was identified by both patient and physician and family and marked. Patient was brought back to the operating room on a wheeled cart and transferred to the operating table in the supine position. Anesthesia was started. A well- padded tourniquet was placed on the operative extremity. A lower extremity leg rodas was secured to the operative extremity. The contralateral extremity was well-padded and the end of the bed was flexed to 90 degrees. The patient was prepped and draped in the usual sterile fashion. A timeout was called to ensure the proper patient, procedure, and extremity were being contemplated. 0.5% Marcaine with epinephrine was injected into the planned incisional areas under the skin only. An Esmarch was used to exsanguinate the extremity and the tourniquet was inflated. An 11 blade scalpel was used to make a stab incision in the anterior lateral portal. The arthroscope was inserted into the int ercondylar notch and inflow and outflow tubes were attached. Arthroscopic visualization began. The medial compartment was entered. An 18-gauge spinal needle was used to establish the placement for anterior medial portal. An 11 blade scalpel was used to make a stab incision. Blunt probe was inserted followed by a meniscal probe. There is small degenerative tearing of the body and posterior horn medial meniscus which was sprayed with a shaver the ACL was found to be intact there was a large spur in the intercondylar notch this was removed with a shaver. The lateral compartment was entered there was noted to be a radial tear of the posterior horn lateral meniscus and anterior horn lateral meniscus with use of a shaver partial lateral meniscectomy was performed the arthroscope was switched to the medial portal to complete the procedure. The medial and lateral gutters were inspected and were free of loose bodies. The patellofemoral joint was inspected and had diffuse grade 4 kissing lesions of the patella and trochlea. There was good patellar tracking. The knee was thoroughly irrigated and drained. An intra-articular injection with 5 cc 0.5% Marcaine plain and 40 mg of Depo-Medrol was injected intra-articularly. The arthroscope was removed the portals were closed with 3-0 nylon arthroscopic stitches. Followed by Xeroform 4 x 4's ABDs web roll and an Richard wrap. The tour niquet was let down and the drapes were removed. All counts were correct. The patient was brought back to the PACU in stable condition.
[2022-06-01 15:19] VITALS: BP 137/76; BP 143/81; PULSE 79; RESP 12; TEMP 36.3; O2SAT 95
--- NOTE | 2022-06-01 15:20 | DCINST_ITS ---
Discharge Instructions Diet Discharge Diet: No restrictions Dressing / Incision Call your doctor if you observe: Shortness of breath and Chest pain Additional Dressing/Incision Instructions:: Ice and elevate next 72 hours .keep dressing on clean and dry for 48 hours then may remove begin showering daily but do not submerge in tub or pool. After shower may apply Band-Aids . Encourage knee range of motion weightbearing as tolerated, use crutches until confident in knee then may discontinue. No strenuous activity. When not ambulating keep iced and elevated next 72 hours. Do not mix pain medication with recreational drugs or alcohol only take as prescribed can be addictive and abusive, call with any questions or concerns. May resume meloxicam immediately. Follow Up Care Please Follow Up With: Calin Gordon DO When: 2 weeks Test Results: Test results from this visit will be discussed in further detail at your follow- up appointment, if applicable. Discharge Plan Admission Attending Provider: Calin Gordon Primary Care Provider: Darryl Amezcua Discharge Orders/Prescriptions Prescriptions: New oxycodone 5 mg tablet 5 - 10 mg PO Q4H PRN (Reason: pain) 5 Days Qty: 30 0RF No Action gabapentin 600 mg tablet 600 mg PO TID oxybutynin chloride 5 mg tablet 5 mg PO BID meloxicam 7.5 mg tablet 7.5 mg PO DAILY cholecalciferol (vitamin D3) 10 mcg (400 unit) capsule 10 mcg PO DAILY vitamin B complex [B Complex-Vitamin B12] Tablet 1 tab PO DAILY tramadol 50 mg tablet 50 mg PO PRN PRN (Reason: Pain) hydrochlorothiazide 25 MG tablet 25 mg PO DAILY duloxetine 60 MG capsule 60 mg PO DAILY Referrals / Follow Up: Darryl Amezcua MD [Primary Care Provider] -
[2022-06-01 15:30] VITALS: BP 131/85; PULSE 72; RESP 16; O2SAT 93
[2022-06-01 15:45] VITALS: BP 136/82; PULSE 71; RESP 16; O2SAT 94
[2022-06-01 15:47] VITALS: BP 130/72; PULSE 66; RESP 16; TEMP 36.1; O2SAT 95
[2022-06-01] MEDS: oxyCODONE 5 MG Tablet PO (16:11)
[2022-06-01 16:56] VITALS: BP 140/86; BP 143/81; PULSE 76; RESP 18; TEMP 36.3; O2SAT 95
== END 2022-06-01 17:07 | disposition home or self-care (01) ==
LOC: SDC 11:24 → AC 11:25
PROVIDERS: PCP Family Medicine; Referring Provider Orthopaedic Surgery; Visit Provider Orthopaedic Surgery
PROC: (CPT 29870; principal; 2022-06-01 12:40)
DX: M17.11 Unilateral primary osteoarthritis, right knee (principal); Z87.891 Personal history of nicotine dependence; S83.241A Other tear of medial meniscus, current injury, right knee, initial encounter
CPT/HCPCS: 29880; 01400; J7120; J2405

== ENCOUNTER → 2022-06-11 | Outpatient (CLI) | payer OTHER, SELFPAY ==
--- NOTE | 2022-06-11 12:41 | MRI_ITS ---
STUDY: MRI LUMBAR SPINE WITHOUT CONTRAST REASON FOR EXAM: Female, 52 years old. RADICULOPATHY x 20 yrs, neuropathy x 7 yrs TECHNIQUE: Standardized fat and water weighted pulse sequences were obtained in the sagittal and axial planes. COMPARISON: Lumbar spine x-rays March 20, 2022 FINDINGS: T12-L1: Normal endplates. Normal disc height, hydration and morphology. Normal bilateral facet joints. Normal central canal and bilateral lateral recesses. Normal bilateral intervertebral neural foramina. Normal lumbar lordosis. There is no substantial scoliosis. Normal conus medullaris that terminates at T12 L1-2: Normal endplates. Normal disc height, hydration and morphology. Normal bilateral facet joints. Normal central canal and bilateral lateral recesses. Normal bilateral intervertebral neural foramina. L2-3: Degenerative endplate changes.. Narrowed disc space with desiccation of the disc and minimal bulging disc osteophyte complex.. Normal bilateral facet joints. Normal central canal and bilateral lateral recesses. Mild bilateral neural foraminal encroachment. L3-4: Normal endplates. Normal disc height, desiccation and minimal annular bulge.. Minor facet arthropathy. Normal central canal and bilateral lateral recesses. Mild bilateral neural foraminal encroachment L4-5:: Degenerative changes. Normal disc height, hydration and small right foraminal disc/osteophyte protrusion and moderate sized left foraminal disc/osteophyte protrusion.. Bilateral facet arthropathy.. Normal central canal and bilateral lateral recesses. Moderate right neural foraminal encroachment and more severe narrowing on the left L5-S1: Normal disc space height and small left foraminal disc protrusion. Facet arthropathy. Normal central canal and bilateral lateral recesses. Mild left neural foraminal encroachment Normal visualized sacral ala. Tiny Tarlov cyst noted within the sacral canal Normal visualized paraspinous soft tissue structures. No significant change since prior exam given inherent differences in imaging modalities MRI/Spine Lumbar (Routine) IMPRESSION: No evidence for acute fracture or other significant bony pathology Multilevel spinal stenosis secondary to disc disease and bony hypertrophy most pronounced at L4-5 and more severe on the left. Other findings as above Electronically Signed: Malcom Gan MD at 22:31 EDT Reading Location ID and State: [address] [place] [address] , Service support ,
== END | disposition home or self-care (01) ==
LOC: MRI 12:27
PROVIDERS: PCP Family Medicine; Referring Provider Anesthesiology Pain Medicine; Visit Provider Anesthesiology Pain Medicine
DX: M54.16 Radiculopathy, lumbar region (principal)
CPT/HCPCS: 72148

== ENCOUNTER → 2022-07-04 | Outpatient (CLI) | payer OTHER, SELFPAY ==
[2022-07-04 10:41] LABS: Anion Gap 4 (5-15); BUN 19 mg/dL (7-18); BUN/Creat Ratio 29.5 RATIO (10-20); Calcium,Total 9.1 mg/dL (8.5-10.1); Chloride 108 mmol/L (98-107); Cholesterol 166 mg/dL (200); Creatinine, Serum 0.64 mg/dL (0.55-1.02); EST Glomerular Filtration Rate 103 mL/min (>60); Est Glom Filt Rate - Afr Amer 124 mL/min (>60); Glucose 96 mg/dL (74-106); High Density Lipoprotein 60 mg/dL; Potassium 3.9 mmol/L (3.5-5.1); Sodium Level 142 mmol/L (136-145); Triglycerides 116 mg/dL; Very Low Density Lipoprotein 23 mg/dL (5-40)
== END | disposition home or self-care (01) ==
LOC: MFPLAB 09:46
PROVIDERS: PCP Family Medicine; Visit Provider Family Medicine
DX: I10 Essential (primary) hypertension (principal)
CPT/HCPCS: 36415; 80048; 80061

== ENCOUNTER → 2022-09-10 | Outpatient (CLI) | payer OTHER, SELFPAY ==
--- NOTE | 2022-09-10 11:59 | BI_ITS ---
MAMMOGRAPHY - BILATERAL SCREENING REASON FOR EXAM: Female, 52 years old. Routine annual screening examination. PERTINENT HISTORY: Grandmother with breast cancer. TECHNIQUE: Digital bilateral breast leon (3D mammographic acquisition) in the CC and MLO projections. 2-D mediolateral oblique (MLO) and craniocaudad (CC) views of both breasts were obtained. CAD: Full Field Digital Mammography with Computer Added Detection was performed. COMPARISON: Comparison is made with prior study of April 03, 2021 and January 07, 2019. FINDINGS: Breast Composition: The breasts are almost entirely fatty. There are no dominant masses or suspicious calcifications. No other significant abnormalities are identified. There has been no significant change since the prior study. BI/SCRN MAMM (CAD)W/LEON BILAT IMPRESSION: Stable bilateral screening mammogram. Yearly follow-up mammogram recommended. (A) ASSESSMENT CATEGORY: BIRADS Category 1: Negative. A letter regarding these results will be sent to the patient by the facility within 30 days. Approximately 10% of breast cancers are not detected by mammography. A normal mammogram should not delay biopsy of a clinically suspicious abnormality. [id number] Electronically Signed: Prieto Jon MD at 12:37 EDT ,
== END | disposition home or self-care (01) ==
LOC: OPBI 11:58
PROVIDERS: PCP Family Medicine; Referring Provider Family Medicine; Visit Provider Family Medicine
DX: Z12.31 Encounter for screening mammogram for malignant neoplasm of breast (principal); Z80.3 Family history of malignant neoplasm of breast
CPT/HCPCS: 77063; 77067

== ENCOUNTER → 2022-11-21 | Outpatient (CLI) | payer OTHER, SELFPAY ==
--- NOTE | 2022-11-21 13:48 | CT_ITS ---
CT RIGHT LOWER EXTREMITY WITH 3-D IMAGING CLINICAL INDICATION: Templating for right TKA. [facility] protocol. TECHNIQUE: Axial CT images of the right lower extremity (from right hip down to right ankle) was performed as per [facility] protocol without IV contrast material. Coronal and sagittal reformats were provided. RADIATION DOSAGE (If Supplied By Facility): CTDIvol = ( 26.98 ) mGy, DLP = ( 1776.35 ) mGycm COMPARISON: Right knee radiographs dated 02/28/2022. FINDINGS: Bones: There is mild degenerative arthrosis of the right hip joint with synovial herniation pits along the anterolateral aspect of the right femoral head-neck junction. There is severe degenerative arthrosis of the patellofemoral and medial femorotibial compartments with joint space narrowing, marginal osteophyte formation, and subchondral sclerosis. There is mild degenerative arthrosis of the lateral femorotibial compartment. There is a 6 mm calcified loose body at the anterior femorotibial joint recess. There is mild tibiotalar arthrosis. Osseous structures are normal without evidence of fracture or dislocation. No lytic or blastic osseous masses. Soft Tissues: There is a small knee joint effusion. The deep soft tissue structures are unremarkable. There is an anchor in the sinus tarsi region. The superficial soft tissues are unremarkable without evidence of edema, hematoma, or foreign body. CT/Extremity Lower without Contra IMPRESSION: Tricompartment degenerative arthrosis of the right knee, most severe in the patellofemoral and medial femorotibial compartments. 6 mm calcified loose body at the anterior femorotibial joint recess. Small knee joint effusion. Electronically Signed: Jere Ramsey MD at 15:38 EDT ,
== END | disposition home or self-care (01) ==
PROVIDERS: PCP Family Medicine; Referring Provider Orthopaedic Surgery; Visit Provider Orthopaedic Surgery
DX: M17.11 Unilateral primary osteoarthritis, right knee (principal)
CPT/HCPCS: 73700

== ENCOUNTER → 2022-11-30 | Outpatient (CLI) | payer OTHER, SELFPAY ==
[2022-11-30 12:16] LABS: Absolute Lymphocyte Count 1.49 X10^3/uL (0.83-4.51); Absolute Neutrophil Count 2.9 X10^3/uL (2.0-7.7); Basophil# 0.02 X10^3/uL; Basophil% 0.4 % (0-1); Eosinophil# 0.09 X10^3/uL; Eosinophils% 1.9 % (0-5); Hematocrit 43.9 % (37-47); Hemoglobin 14.2 g/dL (12.0-15.0); Lymphocyte # 1.49 X10^3/ul (0.83-4.51); Lymphocyte % 30.8 % (19-41); Mean Corp Hgb Conc 32.3 g/dL (32-36); Mean Corpuscular Hgb 29.8 pg (27.0-32.0); Mean Platelet Vol. 10.6 fl (6.2-12.0); Monocyte# 0.35 X10^3/uL; Monocyte% 7.2 % (0-10); NRBC Flagged by Analyzer 0 % (0-5); Neutrophil # 2.87 X10^3/uL (2.7-7.7); Neutrophil % 59.3 % (47-70); Platelet Count 209 K/mm3 (150-450); RBC Distribution Width CV 12.6 % (11.6-14.6); RBC Distribution Width SD 42.7 fl (35.1-43.9); Red Blood Count 4.77 M/mm3 (4.2-5.4); White Blood Count 4.8 K/mm3 (4.4-11.0)
[2022-11-30 12:32] LABS: ALB/GLOB Ratio 0.9 RATIO (0.9-2.4); AST(SGOT) 13 U/L (15-37); Alanine Aminotransfer ALT/SGPT 17 U/L (13-56); Albumin, Serum 3.7 g/dL (3.2-5.0); Alkaline Phosphatase 60 U/L (45-117); Anion Gap 4 (5-15); BUN 13 mg/dL (7-18); Calcium,Total 9.2 mg/dL (8.5-10.1); Chloride 104 mmol/L (98-107); Creatinine, Serum 0.69 mg/dL (0.55-1.02); EST Glomerular Filtration Rate 95 mL/min (>60); Est Glom Filt Rate - Afr Amer 115 mL/min (>60); Globulin 4.3 g/dL (2.2-4.2); Glucose 99 mg/dL (74-106); Potassium 3.4 mmol/L (3.5-5.1); Sodium Level 138 mmol/L (136-145)
== END | disposition home or self-care (01) ==
LOC: MFPLAB 09:53
PROVIDERS: PCP Family Medicine; Visit Provider Family Medicine
DX: Z01.818 Encounter for other preprocedural examination (principal)
CPT/HCPCS: 36415; 80053; 85025

== ENCOUNTER → 2022-12-03 | Outpatient (CLI) | payer OTHER, SELFPAY | END | disposition home or self-care (01) | PROVIDERS: PCP Family Medicine; Visit Provider Nurse Practitioner Family | DX: R39.9 Unspecified symptoms and signs involving the genitourinary system (principal) | CPT/HCPCS: 87077; 87086; 87088; 87186 ==

== ENCOUNTER 2022-12-25 08:43 | Day surgery (SDC) | payer OTHER, SELFPAY ==
[2022-12-17 10:22] LABS: Magnesium 2.2 mg/dL (1.6-2.6)
[2022-12-17 10:37] LABS: Hemoglobin A1c 5.1 % (3.8-5.6)
[2022-12-18 05:07] LABS: Fructosamine 223 umol/L (0-285)
[2022-12-25] VITALS (8 sets, daily range): BP systolic 90–122; BP diastolic 58–78; PULSE 70–100; RESP 14–18; TEMP 36.1–36.7; O2SAT 95–99; BMI 36.8
[2022-12-25] MEDS: Lactated Ringers 1,000 ML 15 ML IV (09:23)
[2022-12-25] MEDS: Magnesium 1 GM over 15 mins IV (09:25)
[2022-12-25] MEDS: Scopolamine 1mg/72hr Patch 1 PATCH TD (09:26)
[2022-12-25] MEDS: Gabapentin 600 MG Tablet PO (09:27)
[2022-12-25] MEDS: Celecoxib 200 MG Capsule 400 MG PO (09:27)
[2022-12-25] MEDS: Acetaminophen 500 MG Tablet 1000 MG PO ×2 (09:28→16:47)
--- NOTE | 2022-12-25 09:45 | PCM.HP.BLA ---
History and Physical Date of Admission: 12/25/22 [facility] [address] [place] [address] OFFICE VISIT Date of Service: 09/19/22 MR#: [id number] Acct: [id number] Name: ARABELLA CHRISTINE Rep #: [id number] : 1970 Provider: Dr. Calin Gordon DO Age/Sex: 52/F Location: [facility] [place] Status: Signed Intake Vital Signs 07/13/2308:07 09/20/2307:33 Height 5 ft 11 in 5 ft 11 in Weight: 296 lb 277 lb 2 oz BMI 41.3 38.6 Intake Visit Reasons: RIGHT KNEE Chief Complaint: right knee Accompanied by: child Is patient in pain?: Yes (Right knee) Pain scale (1-10): 4 Allergies No Known Allergies Allergy (Verified 09/19/22 08:33) Medications duloxetine 60 mg capsule,delayed release 60 mg PO DAILY 02/18/16 [History Confirmed 09/19/22] hydrochlorothiazide 25 mg tablet 25 mg PO DAILY BLOOD PRESSURE 02/18/16 [History Confirmed 09/19/22] gabapentin 600 mg tablet 600 mg PO TID 07/08/19 [History Confirmed 09/19/22] oxybutynin chloride 5 mg tablet 5 mg PO BID 07/08/19 [History Confirmed 09/19/22] cholecalciferol (vitamin D3) 10 mcg (400 unit) capsule 10 mcg PO DAILY 03/16/22 [History Confirmed 09/19/22] meloxicam 7.5 mg tablet 7.5 mg PO DAILY 03/16/22 [History Confirmed 09/19/22] vitamin B complex (B Complex-Vitamin B12 tablet) 1 tab PO DAILY 03/16/22 [History Confirmed 09/19/22] tramadol 50 mg tablet 50 mg PO PRN PRN Pain 05/07/22 [History Confirmed 09/19/22] docosahexaenoic acid 200 mg capsule (Algal [place]-3 DHA) mg PO 09/19/22 [History Confirmed 09/19/22] PFSH Medical History Arthritis Back pain Bladder disease CPAP (continuous positive airway pressure) dependence Former smoker Gastric reflux History of pain when walking Hypertension Leg cramps Migraine headache Mood swings Restless legs Shortness of breath on exertion Surgical History History of Achilles tendon repair History of delivery History of hysterectomy Social History Smoking Status: Former smoker alcohol intake: never HPI RIGHT KNEE Details: Parts of this documentation were recorded by a scribe, this documentation accurately reflects the service provided and the decisions made by me, Dr. Calin Gordon, DO 09/19/22 1783. ARABELLA CHRISTINE is a 52 year old F here today for right knee pain. She complains of continuos pain and swelling in the right knee, this is affecting her daily activities. She reports popping and clicking noises from the knee and it does feel like it is going to give out on her while ambulating. Her insurance denied Euflexxa injections for the knee. She has tried knee bracing and has been working on weight loss. Ortho Exam General General: Yes no acute distress Neurologic: Yes alert and Yes oriented x3 Psychologic: Yes reasonable and appropriate Right Knee Skin/Wound: Yes CDI, Yes healing, No erythema, No ecchymosis and Yes swelling Homans Sign: No 1+: Effusion (small) Knee ROM: No ROM-Extension -20 to 0 (lacking 6) and No ROM-Flexion 0-140 (115) Examination: Yes Lat jt line tenderness and Yes Crepitus Stability: NML: Anterior Drawer, NML: Posterior Drawer, NML: Valgus 0 and NML: Valgus 30 Patella Translation: 1 Patella Grind: Yes KNEE: numbness tingling at the ankle into the toes of BL feet from chronic neuropathy Left Knee Patella Translation: 1 Head: Normocephalic Atraumatic Chest: symmetrical rise, non-labored breathing, no audible wheeze Abdomen: no guarding, non-rigid Supplemental Info 06/01/2022 operative report right knee arthroscopy:Postoperative diagnosis: 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 Procedure: Right knee arthroscopic partial medial partial lateral meniscectomy chondroplasty medial femoral condyle. Coding Level of Care Code Off vis,est,level 3 Diagnoses Primary osteoarthritis of right knee M17.11 Osteoarthritis type: primary Assessment and Plan Assessment and Plan (1) Right knee DJD: Status: Acute Qualifiers: Osteoarthritis type: primary Qualified Code(s): M17.11 - Unilateral primary osteoarthritis, right knee Plan Patient educated that she does have OA of her right knee. Treatment options are do nothing or steroid injection every 3 months or PT or bracing or Zilretta or TKA. She has been denied for Euflexxa injections into the knee. Patient has gotten her weight down and her BMI is now 38.6 therefore she is a candidate for a TKA. Risks, benefits and alternatives of surgery reviewed including but not limited to bleeding, infection, nerve, artery and/or tissue damage, fracture, VTE, mechanical feel of the knee, continued pain, stiffness and expected post-operative course. Patient educated that the most important pain after surgery is therapy and gaining ROM of the knee. She will be on a blood thinner 2 weeks post op. She will be on a walker for about 2-3 weeks then therapy will help her progress to cane. Will take about 3 months for recovery but can improve for up to 2 years post op. She may not feel comfortable driving until at least 6 weeks post op. Patient wishes to wait until 12/25/22 to have the right TKA. Follow up for IOVERA treatment if covered or sooner if pain, swelling, numbness or associated symptoms, or concerns develop. All questions answered. Patient in agreement of plan. 09/19/22 0935 <Electronically signed by Calin Gordon DO> Date Calin Gordon DO Cosigner Signature: Date (if applicable) CC: ~ I have examined the patient and the H&P has been reviewed. There are no clinical changes since date of exam.
[2022-12-25 10:08] LABS: Bedside Glucose 88 mg/dL (74-106)
[2022-12-25] MEDS: Cefazolin 3 GM in 0.9% Normal Saline (100mL Bag) 100 ML IV (10:49)
[2022-12-25] MEDS: TXA 1000mg in NS100 100ml (IVPB at Incision) 660 MG IV (11:00)
[2022-12-25] MEDS: dexAMETHasone 10 MG/ML Vial IV (11:00)
--- NOTE | 2022-12-25 11:10 | KNEE_PTH ---
PATIENT: ARABELLA CHRISTINE LOC: [facility] [place] U#:[id number] AGE/SX: 52/F ROOM: RE12/25/[address]: Dr. Calin Gordon DO : 1970 BED: DIS: 12/25/2022 SPEC #: [id number] RECD: 12/26/22 13:59 STATUS: DAKOTAH REMarizol #: [id number] SHABBIR: 12/25/22 11:[address]: Calin Gordon DEPT: SURGICAL PATHOLOGY RECD BY: Sunita Olmos ENTERED: 12/26/22 11:07 SP TYPE: TOTAL KNEE OTHR DR: Dr. Darryl Amezcua MD Tissues: Knee, NOS Procedures: Decalcification bone/plaque Surgery Specimen Level IV HEADER OPERATION: ERAS, right total knee replacement robotic assisted PRE-OP DIAGNOSIS: Osteoarthritis right knee TISSUE SUBMITTED: Osteoarthritis right knee MICROSCOPIC DIAGNOSIS Bone and tissue of right knee, total knee resection: Severe degenerative joint disease. AM:chrissy 12/31/2022 MICROSCOPIC DESCRIPTION Slides are reviewed. GROSS DESCRIPTION Received is one container designated bone and soft tissue right knee. The specimen consists of multiple fragments of albrecht-yellow bone measuring in aggregate 9 x 8 x 3.5 cm. No soft tissue is identified. A number of bony fragments contain articular surfaces consistent with tibial plateau and femoral condyle and displaying prominent osteophyte formation, eburnation and bone erosion. Vacation Guide sections are submitted in one cassette after decalcification. / ORQUIDEA:jesus 12/26/22 TC:5 CPT: 00712, 62926
[2022-12-25] MEDS: TXA 1000mg in NS100 100ml (IVPB at Closure) 660 MG IV (11:32)
[2022-12-25] MEDS: dexAMETHasone 4 MG/ML Vial (12:30)
[2022-12-25] MEDS: Bupivacaine 0.5% PF 10 ML VIAL (12:30)
[2022-12-25] MEDS: 0.9% Normal Saline (Pres. free 10 ML Vial (12:30)
[2022-12-25] MEDS: Epinephrine (1 mg/ml) 1 MG/ML VIAL (12:30)
--- NOTE | 2022-12-25 13:06 | OP.PCM_ITS ---
Operative Report Date of Procedure: 12/25/22 Preoperative diagnosis: Right knee DJD Postoperative diagnosis: Same Procedure: Right total knee arthroplasty CT guided Robotic Assisted Implant: [place] triathlon press fit, femoral component size5, tibial baseplate size 4, asymmetric patella size 35, polyethylene X3 size 9 CS Anesthesia: Attempted spinal conversion to General with adductor canal block Tourniquet time: 13 minutes at 300 mmHg Complications: None Condition: Stable to PACU Estimated blood loss: 175 cc Pen Tester Devan Messer. My physician butcher's assistant was a vital part of this case. He was important in appropriate retraction during the case, and protection of soft tissues during procedure. His intimate knowledge of the case and my steps aided in safe and expedient completion of the procedure as well as appropriate position of the extremity during the case. He was also vital in assisting with closure under my direct supervision. Indication for procedure: This is a 82-year-old female with long standing degenerative joint disease of the knee who has failed conservative treatment and wished to proceed with elective total knee arthroplasty. Risk benefits and alternatives were reviewed including; risk of bleeding, infection, nerve artery and tissue damage, continued pain, postoperative stiffness, venous t hromboembolism, need for postoperative rehabilitation, mechanical feel to the knee, and expected postoperative course. The pre- operative CT and templating was performed with component sizing. Procedure: The patient was met in the preoperative holding area. The operative extremity was identified by both patient and physician and was marked. Patient was met by anesthesia. An adductor canal block was placed by anesthesia postoperatively the patient was brought back to the operating room on a wheeled cart and transferred to the operating table in the supine position. Anesthesia was started. A well-padded tourniquet was placed on the operative extremity. The patient was prepped and draped in the usual sterile fashion. A timeout was called to ensure the proper patient procedure and extremity were being contemplated. An esmarch was used to exsanguinate the extremity. The tourniquet was inflated. A 10 blade scalpel was used to make a midline incision down through the skin and subcutaneous tissue. Skin retractors placed. Bovie and Aquamantis were used to perform meticulous hemostasis. full-thickness flaps were elevated medial and lateral along the joint capsule. A deep blade scalpel was used to perform a medial parapatellar arthrotomy. The knee was brought to full extension. A bovie was used to release the soft tissues off the most proximal aspect of the medial tibial plateau, a three-quarter inch curved osteotome was also used in this process. The infrapatellar fat pad was excised. The suprapatellar fat pad was excised partially anteriorolateraly and portion the anterioromedial pad was elevated from the femur. At this point our intra- articular femoral array was placed at a 45 degree angle proximal and posterior to the medial epicondyle. femoral checkpoint was placed at this time. Our tibial array was placed greater than 1 hands breath below the incision at a 20 degree angle stab incisions were made with a 15 blade scalpel and pins were placed and attached to the tibial array , tibial checkpoint was placed in the proximal tibial metaphysis. Tourniquet was let down. At this point registration lopez were taken throughout the knee . Once the knee was registered we then tensioned the medial and lateral ligaments in extension and 90 degrees of flexion. We then used these numbers to adjust our components within parameters to balance the knee in both flexion and extension once this was done on our monitor we then proceeded with using the robotic arm to make our tibial plateau cut, anterior and posterior chamfer and distal femur cuts. we removed the cut fragments with the use of a bovie and Zofia, we did use a lamina business continuity analyst to insure we visualized and removed all posterior osteophytes and at this time also used the Aquamantis on the posterior joint capsule. we then trialed and achieved the desired plan with a well-balanced knee. we used the green probe to da the corresponding tibial rotation based on our CT template. Lug holes were drilled in the femur the tibia preparation was completed with the appropriate sized base plate pinned based on previous rotation da. An appropriate sized fin punch was used on the tibia and 4 corner drill was used for the press fit component and the patella was prepared by first using a caliper to ensure sufficient bone stock and a patellar reamer to remove the desired amount of bone. lug holes drilled for an asymmetric poly. We then brought the knee through range of motion with excellent patellar tracking. We thoroughly irrigated the knee. Trial components were removed a posterior capsular injection was preformed with our standard cocktail. In addition the aqua Mantis was also used to aid in hemostasis. Betadine rinse was allowed to sit and washed out completely. Components were press-fit into place. Aricept rinse was then used followed by several more liters of irrigation after it was allowed to sit. The joint capsule was closed with #1 Ethibond [id number] followed by Vicryl in the subcutaneous tissues with rex in the skin. Arrays and checkpoints were removed prior to closure all counts were correct stab incisions were closed with a staple standard dressing in the form of Mepilex AG for the main incision and a small Mepilex over the pin holes. Thigh-high LORENA hose applied over top of dressing. Patient tolerated the procedure well and was directed to PACU in stable condition . There were no intraoperative complications.
--- NOTE | 2022-12-25 13:08 | RAD_ITS ---
STUDY: X-RAY - RIGHT KNEE REASON FOR EXAM: Female, 52 years old. Postop in PACU -- in PACU TECHNIQUE: 2 view(s) of the knee. COMPARISON: February 28, 2022 right knee x-ray FINDINGS: There has been a right knee arthroplasty. There is visualized postoperative change with trace joint effusion and fluid in the anterior aspect of Hoffa''s fat pad. There is also visualized postoperative gas as expected for recent postop imaging. There is a 3 part right knee arthroplasty demonstrated which appears to be in appropriate position. RAD/Knee 1 or 2 Views IMPRESSION: Status post right knee arthroplasty, with postoperative change. Electronically Signed: Leeann Castorena MD at 12:17 EST Reading Location ID and State: [facility] / [place] Tel , Service support ,
--- NOTE | 2022-12-25 13:18 | EX.PCM.DISCH ---
Discharge Instructions Diet Discharge Diet: No restrictions Activity Weight Bearing Status: Weight bearing as tolerated Dressing / Incision Call your doctor if you observe: Shortness of breath and Chest pain Additional Dressing/Incision Instructions:: Ice and elevate lower extremities 2 weeks while not ambulating. Ambulation is encouraged. Weight bearing as tolerated. Use assistive devise for stability. Encourage FULL knee extension and flexion 1 time EVERY time you get up and down and MULTIPLE times per day. No showering until 72 hours after surgery. Begin showering postop day #3. Remove the dressing prior to shower and gently wash with warm water and antibacterial soap then pat dry and place abdominal pad (or plain gauze) and LORENA hose over top. This is to be done daily. Do not submerge for 3 weeks. If not showering daily after the initial 72 hours then you must clean incision and change dressing daily. Do not allow animals near the incision area. Keep clean. Follow anti-coagulation recommendations as prescribed. Do not take any NSAIDs while on blood thinner. Do not take any additional narcotic pain medication other than what was prescribed on your surgery day without discussing with physician. Narcotic medication can be addictive. Do not drink alcohol while taking narcotics. Supplement narcotic prescription with acetaminophen 1000 mg 4 times a day. Start physical therapy. If you are not currently scheduled for physical therapy or you are unsure of appointment time please call office [facility] to arrange. Call Dr. Gordon with any concerns. Follow Up Care Please Follow Up With: Calin Gordon DO When: 2 weeks Test Results: Test results from this visit will be discussed in further detail at your follow-up appointment, if applicable. Discharge Plan Admission Primary Reason for Your Visit: Right total knee arthroplasty Attending Provider: Calin Gordon Primary Care Provider: Darryl Amezcua Discharge Orders/Prescriptions Prescriptions: New acetaminophen [acetaminophen] 500 mg tablet 1,000 mg PO Q6H PRN Qty: 100 0RF cephalexin [cephalexin] 500 mg capsule 1,000 mg PO Q8 Qty: 4 0RF Rx Instructions: take 2 tabs at 9:00 pm and 2 tabs after 5 am when you wake up Eliquis 2.5 mg tablet 2.5 mg PO BID Qty: 28 0RF Rx Instructions: begin morning after surgery oxycodone 5 mg tablet 5 - 10 mg PO Q4H PRN (Reason: pain) 7 Days Qty: 60 0RF Continued gabapentin 600 mg tablet 600 mg PO .5XD oxybutynin chloride 5 mg tablet 5 mg PO BID cholecalciferol (vitamin D3) 10 mcg (400 unit) capsule 10 mcg PO DAILY vitamin B complex [B Complex-Vitamin B12] Tablet 1 tab PO DAILY Algal [place]-3 DHA 200 mg capsule 200 mg PO DAILY hydrochlorothiazide 25 MG tablet 25 mg PO DAILY duloxetine 60 MG capsule 60 mg PO DAILY buprenorphine 5 mcg/hour patch weekly 1 patch topical TU Held meloxicam 7.5 mg tablet 15 mg PO DAILY Hold Instructions: Resume on 01/10/23. hold until day after completion of blood thinner Referrals / Follow Up: Darryl Amezcua MD [Primary Care Provider] - Disposition Disposition (needs filled in before D/C Order can be placed): Home, Self Care
[2022-12-25] MEDS: Lactated Ringers 1,000 ML 125 ML IV (14:02)
[2022-12-25] MEDS: oxyCODONE 5 MG Tablet PO (14:40)
[2022-12-25] MEDS: Cefazolin 2 GM in 0.9% Normal Saline (100mL Bag) 100 ML IV (14:51)
== END 2022-12-25 17:41 | disposition home or self-care (01) ==
LOC: SDC 08:44 → AC 08:45
PROVIDERS: Anesthesiology; PCP Family Medicine; Referring Provider Orthopaedic Surgery; Visit Provider Orthopaedic Surgery
PROC: 0SRC0JZ Replacement of Right Knee Joint with Synthetic Substitute, Open Approach (ICD-10-PCS; CPT 27447; principal; 2022-12-25 10:40)
DX: M17.11 Unilateral primary osteoarthritis, right knee (principal); I10 Essential (primary) hypertension; Z87.891 Personal history of nicotine dependence; Z90.710 Acquired absence of both cervix and uterus; G62.9 Polyneuropathy, unspecified; R45.86 Emotional lability; M54.9 Dorsalgia, unspecified; G89.29 Other chronic pain; Z79.899 Other long term (current) drug therapy
CPT/HCPCS: 27447; 01402; 64450; 36415; 73560; 82962; 82985; 83036; 83735; 85610; 85730; 86850; 86900; 86901; 87077; 87081; 88305; 88311; 97162; C1776; J7120; J2405; J3475; J3490

== ENCOUNTER 2023-03-13 09:00 | Outpatient (RCR) | payer OTHER, SELFPAY ==
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
--- NOTE | 2023-02-03 20:00 | HP.PTREVAL_ITS ---
Re-Evaluation Intro: Dr. Calin Gordon, DO, It has been my pleasure to treat ARABELLA CHRISTINE over the last 12 visits for S/P R TKR 12/25/22. Please see the progress note below for an update on the physical therapy plan of care! Subjective Subjective: STATES SHE FEELS LIKE SHE HAS COME A LONG WAY BUT FEELS LIKE SHE COULD USE MORE HELP TO CONTINUE TO IMPROVE. STATES THAT SHE STILL FEELS SOME SNAPPING IN HER OUTER KNEE WHEN SHE BENDS IT SOMETIMES BUT THEN IT GOES AWAY AND SHE CAN BEND IT FURTHER. Objective Objective/Function: PATIENT WAS SEEN TODAY FOR RE-ASSESSMENT OF PROGRESS TOWARD THE SET PT GOALS AND THE NEED FOR FURTHER PHYSICAL THERAPY VS READINESS FOR DISCHARGE. PATIENT IS MAKING GOOD PROGRESS IN PT AND WOULD BENEFIT FROM SOME FURTHER PT DECREASING TO 2 TIMES A WEEK SHE TRANSITIONS TO INDEP EX. UPON EXAM TODAY: INDEP GAIT ON LEVEL SURFACES WITHOUT AD BUT VERY MILD LIMP ON R LE. 0-121 DEG FLEXION AROM IN SUPINE. 43 CM circumference AT PATELLA YANCY. INDEP UP AND DOWN STEPS WITH ONE HR. SHE IS GETTING STRONGER EVIDENCED BY INCREASED THER EX VOLUME AND BETTER QUAD AND HS CONTROL 4/5. PATIENT IS AGREEABLE WITH BELOW POC. Plan Plan Plan: *CHECK AND RECORD NEW AUTH WHEN/IF REC'D NEXT VISIT* CONTINUE PT 2X'S A WK X 5 WKS. FOCUS ON BETTER QUAD AND HAMSTRING STRENGTH ALONG WITH IMPROVING EASE OF 0-120 P JANAY DEGREE R KNEE ROM. INDEP HEP. Balance/Gait/Functional tests Balance/Special Test Scores WOMAC Total Score: 18 WOMAC Percentage: 81.2500 Goals Goals Goal 1:: PATIENT WILL BE INDEP WITH HEP Goal Time Frame: 4-6 Weeks Goal Progress: Progressing Goal 2:: PATIENT WILL HAVE DECREASED EDEMA IN R LE SYMMETRICAL TO L SIDE Goal Time Frame: 4-6 Weeks Goal Progress: Goal Met Goal 3:: PATIENT TO HAVE INCREASED R KNEE ROM TO A LEAST 0-120 DEG Goal Time Frame: 4-6 Weeks Goal Progress: Goal Met Goal 4:: PATIENT TO HAVE INCREASED R LE STRENGTH TO 5/5 THROUGHOUT ALLOWING FOR INCREASED STABILITY WITH ALL GAIT AND WORK ACTIVITIES Goal Time Frame: 4-6 Weeks Goal Progress: Progressing Goal 5:: PATIENT WILL HAVE NORMAL GAIT PATTERN WITHOUT USE OF AD. Goal Time Frame: 4-6 Weeks Goal Progress: Progressing Goal 6:: PATIENT WILL BE ABLE TO NEGOTIATE STEPS WITH 1 HR WITH RECIPROCAL PATTERN WITHOUT LIMITATIONS. Goal Time Frame: 4-6 Weeks Goal Progress: Goal Met Anticipated Interventions Anticipated Interventions Patient/Client Instruction: Educate patient on: Condition, Plan of Care and Risk Factors For the Purpose of:: To improve self management Therapeutic Exercise to Include: Strength training, Endurance training, Postural training, Flexibilty training, Gait and locomotor training, Passive ROM and Active ROM For the Purpose of:: To decrease pain, To decrease swelling/inflammation, To increase ROM, To improve nutrient delivery to tissue, To increase oxygenation perfusion, To improve muscle performance and motor function, To improve ability to perform ADL's, To increase tolerance to activity/condition/position, To improve performance and independence with ADL's, To improve ability of physical actions for home/community/work/leisure, To improve gait and locomotor functions, To improve health of tissue, To decrease soft tissue restriction and To increase flexibility/ROM Manual Therapy Techniques to Include: Mobilization and Soft tissue mobilization For the Purpose of:: To decrease pain, To decrease swelling/inflammation and To increase ROM Cryotherapy (ice pack, ice massage): Yes Vasopneumatic device: Yes For the Purpose of:: To decrease pain, To decrease swelling/inflammation and To increase ROM Re-Evaluation Ending Re-evaluation ending: Please do not hesitate to contact me at [phone] by phone or if you have questions or concerns regarding this new plan of care! Sincerely, Ayah Dodson PT, Cert MDT
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
== END 2023-03-13 19:00 | disposition home or self-care (01) ==
LOC: PT 09:00
PROVIDERS: PCP Family Medicine; Referring Provider Orthopaedic Surgery; Visit Provider Orthopaedic Surgery
DX: M17.11 Unilateral primary osteoarthritis, right knee (principal); Z96.651 Presence of right artificial knee joint
CPT/HCPCS: 97110; 97140; 97162; 97164; 97530

== ENCOUNTER → 2023-06-05 | Outpatient (CLI) | payer OTHER, SELFPAY ==
[2023-06-05 10:08] LABS: ALB/GLOB Ratio 0.8 RATIO (0.9-2.4); AST(SGOT) 10 U/L (15-37); Alanine Aminotransfer ALT/SGPT 13 U/L (13-56); Albumin, Serum 3.7 g/dL (3.2-5.0); Alkaline Phosphatase 65 U/L (45-117); Anion Gap 3 (5-15); BUN 16 mg/dL (7-18); BUN/Creat Ratio 28.5 RATIO (10-20); Calcium,Total 9.2 mg/dL (8.5-10.1); Chloride 106 mmol/L (98-107); Cholesterol 184 mg/dL (200); Creatinine, Serum 0.56 mg/dL (0.55-1.02); EST Glomerular Filtration Rate 120 mL/min (>60); Est Glom Filt Rate - Afr Amer 145 mL/min (>60); Globulin 4.4 g/dL (2.2-4.2); Glucose 102 mg/dL (74-106); High Density Lipoprotein 60 mg/dL; Potassium 3.7 mmol/L (3.5-5.1); Protein, Total 8.1 g/dL (6.4-8.2); Sodium Level 139 mmol/L (136-145); Triglycerides 111 mg/dL; Very Low Density Lipoprotein 22 mg/dL (5-40)
== END | disposition home or self-care (01) ==
LOC: LAB 09:01
PROVIDERS: PCP Family Medicine; Referring Provider Family Medicine; Visit Provider Family Medicine
DX: I10 Essential (primary) hypertension (principal)
CPT/HCPCS: 36415; 80053; 80061

== ENCOUNTER → 2023-12-02 | Outpatient (CLI) | payer OTHER, SELFPAY ==
[2023-12-02 11:20] LABS: Anion Gap 6 (5-15); BUN 15 mg/dL (7-18); BUN/Creat Ratio 25.1 RATIO (10-20); Calcium,Total 9.3 mg/dL (8.5-10.1); Chloride 106 mmol/L (98-107); Cholesterol 177 mg/dL (200); EST Glomerular Filtration Rate 111 mL/min (>60); Est Glom Filt Rate - Afr Amer 134 mL/min (>60); Glucose 93 mg/dL (74-106); High Density Lipoprotein 64 mg/dL; Potassium 3.7 mmol/L (3.5-5.1); Sodium Level 142 mmol/L (136-145); Triglycerides 96 mg/dL; Very Low Density Lipoprotein 19 mg/dL (5-40)
== END | disposition home or self-care (01) ==
LOC: MFPLAB 09:08
PROVIDERS: PCP Family Medicine; Visit Provider Family Medicine
DX: I10 Essential (primary) hypertension (principal)
CPT/HCPCS: 36415; 80048; 80061

== ENCOUNTER 2023-12-13 08:13 | Day surgery (SDC) | payer OTHER, SELFPAY ==
[2023-12-13] VITALS (13 sets, daily range): BP systolic 102–148; BP diastolic 52–109; PULSE 57–86; RESP 12–16; TEMP 36.2–36.4; O2SAT 92–99; BMI 36.3
[2023-12-13] MEDS: Lactated Ringers 1,000 ML 15 ML IV (09:05)
--- NOTE | 2023-12-13 10:01 | PRE.ANES_ITS ---
ASA Classification* ASA Classification ASA Classification: 2 Assessment & Plan Anesthesia* Anesthesia Assessment Anesthesia Assessment: Discussed sedation and/or anesthesia options, risks, benefits, and alternatives with patient/parents/legal guardian/POA. Questions invited. The patient/parents/legal guardian/POA seems to understand and agrees to proceed with anesthesia plan. Reviewed the physical assessment, medical history, allergy history and patient home medications list prior to surgery/procedure/anesthetic and documented any changes. Performed airway and anesthesia risk assessments. Anesthesia Type Anesthesia Type: General History Source History Obtained from:: Patient and Chart Anesthesia Focused Assessment* Temperature: 97.5 F Pulse Rate: 57 Blood Pressure: 125/75 Respiratory Rate: 16 Pulse Ox: 98 Oxygen Delivery Method: Room Air Airway Assessment Mouth opens: >3 cm Mallampati Score: I Teeth Condition: Intact Neck Range of motion (ROM): Full ROM Focused Labs Anesthesia Preop lab: CBC WBC 4.8 K/mm3 (4.4-11.0) 11/30/22 09:55 RBC 4.77 M/mm3 (4.2-5.4) 11/30/22 09:55 Hgb 14.2 g/dL (12.0-15.0) 11/30/22 09:55 Hct 43.9 % (37-47) 11/30/22 09:55 Plt Count 209 K/mm3 (150-450) 11/30/22 09:55 CHEMISTRY Potassium 3.7 mmol/L (3.5-5.1) 12/02/23 09:08 Sodium 142 mmol/L (136-145) 12/02/23 09:08 Magnesium 2.2 mg/dL (1.6-2.6) 12/17/22 09:32 BUN 15 mg/dL (7-18) 12/02/23 09:08 Creatinine 0.60 mg/dL (0.55-1.02) 12/02/23 09:08 Glucose 93 mg/dL (74-106) 12/02/23 09:08 POC Glucose 88 mg/dL (74-106) 12/25/22 09:04 TSH 2.59 uIU/mL (0.358-3.74) 11/17/18 08:56 COAG PT 13.0 SECONDS (11.7-14.9) 12/17/22 09:33 Pre-Assessment Diagnosis/Proposed Procedure Planned Operative Procedure(s): INSERTION SPINAL CORD STIM,PERMANENT Anesthesia History 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 When Was Last Pacemaker Check QUESTION #4 FULL TEXT: You/Your Family Experience fever (hyperthermia) with Anesthesia Last Oral Intake Last Oral intake: Last Oral Intake NPO since 21:00 12/13/23 08:42 Meds taken in AM with sips of Yes 12/13/23 08:42 water? Meds patient instructed to gabapentin, oxybutyin, 12/13/23 08:42 take am of surgery cymbalta Any additional information?: Yes Meds taken in AM with sips of water?: Yes PONV PONV - plant general manager: PONV - plant general manager Female Yes 12/05/23 15:10 HX of Motion Sickness Yes 12/05/23 15:10 HX of N/V After Surgery No 12/05/23 15:10 Non-Smoker Yes 12/05/23 15:10 Duration of Surgery greater No 12/05/23 15:10 than 60 minutes Number of Risk Factors 3 12/05/23 15:10 PONV Score Moderate Risk 12/05/23 15:10 Height & Weight Height & Weight: Anesthesia: Height & Weight Height 5 ft 11 in 12/13/23 08:42 Weight: 118 kg 12/13/23 08:42 Body Mass Index (BMI) 36.3 12/13/23 08:42 Respiratory Assessment Respiratory Assessment - plant general manager: Respiratory Tract Infection Hx - plant general manager Hx Respiratory Tract Infection No 12/05/23 15:10 STOP Sleep Apnea STOP Sleep Apnea - plant general manager: STOP Sleep Apnea - plant general manager Hx Hypertension Yes: CONTROLLED WITH MED 12/05/23 15:10 Hx Sleep Apnea Yes 12/05/23 15:10 CPAP Yes 12/05/23 15:10 BIPAP No 12/05/23 15:10 Do you snore loudly (louder than talking or can be heard Do you often feel tired/ fatigued/ sleepy during daytime? Has anyone observed you stop breathing during sleep? STOP Results Positive 12/05/23 15:10 QUESTION #5 FULL TEXT : Do you snore loudly (louder than talking or can be heard through closed doors)? Tobacco Use History Tobacco Use History - plant general manager: Tobacco Use History - plant general manager Tobacco Use Smoking Status Former smoker 12/05/23 15:10 Hx Tobacco Use No 12/05/23 15:10 Years Smoking Packs Smoked per Day Smoking Cessation Date was Yes - quit smoking within 15 12/05/23 15:10 within the last 15 years years Hx Smoking Cessation Date 02/18/19 12/05/23 15:10 Hx Smoking Cessation No 12/05/23 15:10 Counseling Hematologic Medial History Hematologic Hx - plant general manager: Hematologic Medical Hx - high lighter Hx of Blood Transfusion No 12/05/23 15:10 Hx of Transfusion in last 3 No 12/05/23 15:10 Months Date of Last Transfusion (if within last 3 months) Ever experience any problems No 12/05/23 15:10 with transfusion(s)? Specify any problems Hx of Preganancy in last 3 No 12/05/23 15:10 Months Nurse Filling Out Transfusion DSCHRIBER 12/05/23 15:10 & Questions: Date: 12/05/23 12/05/23 15:10 Time: 15:12 12/05/23 15:10 Patient unable to answer at this time (ie. confused, unrespo /Reproduction History /Reproductive History - plant general manager: /Reproductive Hx- plant general manager Hx Now No 12/05/23 15:10 Gestational Age (in weeks): EDC: Hx Hx Para Hx Section SAB No 12/05/23 15:10 Active Medications Active Medications: Current Medications Generic Name Dose Route Start Last Admin Trade Name Freq PRN Reason Stop Dose Admin Lactated Ringer's 1,000 mls @ 15 mls/hr 12/13/23 08:30 12/13/23 09:05 IV 12/16/23 03:09 15 mls/hr .Q48H REED Administration Protocol [facility] Medical History (Updated 08/05/23 @ 13:[address] Nik Ferris MD) Neuropathy Bladder disease Mood swings Arthritis Restless legs Back pain Migraine headache Gastric reflux Shortness of breath on exertion Former smoker CPAP (continuous positive airway pressure) dependence Leg cramps History of pain when walking Hypertension Home Medications ?Medication ?Instructions ?Recorded ?Last Taken ?Type duloxetine 60 mg capsule,delayed 60 mg PO DAILY 02/18/16 12/13/23 History release hydrochlorothiazide 25 mg tablet 25 mg PO DAILY BLOOD PRESSURE 02/18/16 12/24/22 History gabapentin 600 mg tablet 600 mg PO .5XD 07/08/19 12/13/23 History oxybutynin chloride 5 mg tablet 5 mg PO BID 07/08/19 12/13/23 History cholecalciferol (vitamin D3) 10 10 mcg PO DAILY 03/16/22 Unknown History mcg (400 unit) capsule meloxicam 7.5 mg tablet 15 mg PO DAILY 03/16/22 12/18/22 History vitamin B complex (B 1 tab PO DAILY 03/16/22 Unknown History Complex-Vitamin B12 tablet) docosahexaenoic acid 200 mg 200 mg PO DAILY 09/19/22 Unknown History capsule (Algal Brooten-3 DHA) acetaminophen 500 mg tablet 1,000 mg (2 x 500 mg) PO Q6H PRN 12/25/22 Unknown Rx #100 tabs buprenorphine 7.5 mcg/hour weekly 1 patch topical QWEEK 08/05/23 Unknown History transdermal patch biotin 10,000 mcg capsule 10,000 mcg PO DAILY 12/05/23 Unknown History Allergy/AdvReac Type Severity Reaction Status Date / Time oxycodone Allergy Intermediate Itching Verified 12/13/23 10:09 Surgical History (Updated 12/05/23 @ 15:14 by Kayla Maynard) Hx of total knee arthroplasty Hx of meniscectomy of right knee History of Achilles tendon repair History of hysterectomy History of delivery Social History Smoking Status: Former smoker alcohol intake: never Review of Systems (Anesthesia) ROS Narrative System reviewed and no additional complaints, except as documented.
[2023-12-13] MEDS: Cefazolin 2 GM in Syringe IV (11:37)
--- NOTE | 2023-12-13 11:55 | RAD_ITS ---
STUDY: INTRAOPERATIVE FLUOROSCOPY TECHNIQUE: The examination was performed with referring physician in attendance. Under fluoroscopic observation, fluoroscopic images were obtained. Radiologist was not present for the study. Radiologist did not perform the procedure. This dictation is for documentation of the radiation dosage only. There is no interpretation of the images. TOTAL NUMBER OF IMAGES: 3 COMPARISON: None RADIATION DOSE: 248.4 mGy FLUOROSCOPY TIME: 300.3 seconds REASON FOR EXAM: INSERT SPINAL CORD STIM, PERMANENT Female, 53 years old. FINDINGS: Spinal cord stimulator lead in place. RAD/Lumbar Spine 2 or 3 Views IMPRESSION: Fluoroscopic assistance images were obtained. Dictation for documentation purposes only. Electronically Signed: Gabriele Maloney MD at 18:51 EDT ,
[2023-12-13] MEDS: Lidocaine 0.5% (50 ml) 50 ML Vial (12:11)
[2023-12-13] MEDS: Bupiv/Epi 0.25% 30 ML Vial (12:11)
--- NOTE | 2023-12-13 13:34 | PCM.POST.ANE ---
Anesthesia: Postop Eval I Current Vital Signs Temperature: 97.2 F Pulse Rate: 74 Blood Pressure: 111/63 Respiratory Rate: 16 Pulse Ox: 92 Oxygen Delivery Method: Nasal Cannula Oxygen Flow Rate (L/min): 4 Assessment Airway patent: Yes Spontaneous unlabored respirations: Yes Mental status: Awake and Calm nausea: No Vomiting: No Anesthesia Complication: No Fluid Hydration Crystalloid volume administer (ml): 900 Total IV fluid infused: 900 Progress Note Anesthesia document: Postop Eval 1 completed: Yes
[2023-12-13] MEDS: Lactated Ringers 1,000 ML 999 ML IV (14:55)
[2023-12-13] MEDS: HYDROcodone Bitartrate/Apap 5/325 Tablet PO (15:21)
--- NOTE | 2023-12-13 16:09 | POSTOPAN2_ITS ---
Anesthesia Postop Eval I Sum Postop Eval Completion status Anesthesia document: Postop Eval 1 completed: Yes Anesthesia Postop Eval I Summary Anesthesia Postop Eval I Summary: Anesthesia Postop Eval I: Assessment Summary Airway patent Yes 12/13/23 13:36 RISK AND INSURANCE MANAGER.MDOT Spontaneous unlabored Yes 12/13/23 13:36 RISK AND INSURANCE MANAGER.MDOT respirations Mental status Awake,Calm 12/13/23 13:36 RISK AND INSURANCE MANAGER.MDOT nausea No 12/13/23 13:36 RISK AND INSURANCE MANAGER.MDOT Vomiting No 12/13/23 13:36 RISK AND INSURANCE MANAGER.MDOT Anesthesia Postop Eval I: Fluid Summary Crystalloid volume administer 900 12/13/23 13:36 RISK AND INSURANCE MANAGER.MDOT (ml) Colloids volume administered ( ml) Blood Product volume administered (ml) Total IV fluid infused 900 12/13/23 13:36 RISK AND INSURANCE MANAGER.MDOT Anesthesia Postop Eval I: Summary Notes Anesthesia Complication No 12/13/23 13:36 RISK AND INSURANCE MANAGER.MDOT Anesthesia Complication Comment: Post-operative progress note Anesthesia: Postop Eval II Evaluation Mental status: Awake and Calm Pain Level: 2 nausea: No Vomiting: No Complications Anesthesia Complication: No
--- NOTE | 2023-12-13 16:09 | PCM.POSTANE2 ---
Anesthesia Postop Eval I Sum Postop Eval Completion status Anesthesia document: Postop Eval 1 completed: Yes Anesthesia Postop Eval I Summary Anesthesia Postop Eval I Summary: Anesthesia Postop Eval I: Assessment Summary Airway patent Yes 12/13/23 13:36 CIRCULAR SAWYER STONE.[email or web address] Spontaneous unlabored Yes 12/13/23 13:36 CIRCULAR SAWYER STONE.MDOT respirations Mental status Awake,Calm 12/13/23 13:36 CIRCULAR SAWYER STONE.MDOT nausea No 12/13/23 13:36 CIRCULAR SAWYER STONE.MDOT Vomiting No 12/13/23 13:36 CIRCULAR SAWYER STONE.MDOT Anesthesia Postop Eval I: Fluid Summary Crystalloid volume administer 900 12/13/23 13:36 CIRCULAR SAWYER STONE.MDOT (ml) Colloids volume administered ( ml) Blood Product volume administered (ml) Total IV fluid infused 900 12/13/23 13:36 CIRCULAR SAWYER STONE.MDOT Anesthesia Postop Eval I: Summary Notes Anesthesia Complication No 12/13/23 13:36 CIRCULAR SAWYER STONE.[email or web address] Anesthesia Complication Comment: Post-operative progress note Anesthesia: Postop Eval II Evaluation Mental status: Awake and Calm Pain Level: 2 nausea: No Vomiting: No Complications Anesthesia Complication: No
== END 2023-12-13 17:00 | disposition home or self-care (01) ==
LOC: SDC 08:16 → AC 08:17
PROVIDERS: PCP Family Medicine; Referring Provider Anesthesiology Pain Medicine; Visit Provider Anesthesiology Pain Medicine
PROC: (CPT 63685; principal; 2023-12-13 09:30)
DX: G89.4 Chronic pain syndrome (principal); M79.671 Pain in right foot; M79.672 Pain in left foot; I10 Essential (primary) hypertension; Z90.710 Acquired absence of both cervix and uterus
CPT/HCPCS: 63650; 00630; 72100; 76000; C1778; C1820; J7120; J2405

== ENCOUNTER → 2024-06-24 | Outpatient (CLI) | payer OTHER, SELFPAY ==
[2024-06-24 10:58] LABS: Anion Gap 10 (5-15); BUN 13 mg/dL (4-19); BUN/Creat Ratio 21.8 RATIO (10-20); Calcium,Total 9.5 mg/dL (7.6-11.0); Carbon Dioxide 26.8 mmol/L (21.0-32.0); Chloride 104 mmol/L (98-108); Cholesterol 190 mg/dL (<=200); Creatinine, Serum 0.61 mg/dL (0.70-1.20); EST Glomerular Filtration Rate 105 (>60); Glucose 97 mg/dL (70-99); High Density Lipoprotein 59 mg/dL; Low Density Lipoprotein Calc. 106 mg/dL; Potassium 3.8 mmol/L (3.3-5.1); Sodium Level 140 mmol/L (133-145); Triglycerides 125 mg/dL; Very Low Density Lipoprotein 25 mg/dL (5-40); cholesterol:hdl ratio screen 3.23
== END | disposition home or self-care (01) ==
LOC: MFPLAB 09:12
PROVIDERS: PCP Family Medicine; Referring Provider Family Medicine; Visit Provider Family Medicine
DX: I10 Essential (primary) hypertension (principal)
CPT/HCPCS: 36415; 80048; 80061

== ENCOUNTER → 2024-07-15 | Outpatient (CLI) | payer OTHER, SELFPAY ==
--- NOTE | 2024-07-15 13:01 | BI_ITS ---
EXAM: SCRN MAMM (CAD)W/LEON BILAT 07/15/2024 CLINICAL HISTORY: F, Age 54 y/o , ANNUAL TECHNIQUE: Bilateral screening digital breast tomosynthesis with 2D and 3D images. Computer aided detection. COMPARISON: Prior exam(s) dated 09/10/2022, 04/03/2021. FINDINGS: TISSUE DENSITY: The breast tissue is composed of scattered area of fibroglandular density. Bilateral Breast Mammographic Findings: No significant masses, calcifications or other abnormalities are identified. BI/SCRN MAMM (CAD)W/LEON BILAT IMPRESSION: Right Breast: BIRADS 1 NEGATIVE. Left Breast: BIRADS 1 NEGATIVE. OVERALL FINAL ASSESSMENT: BIRADS 1 NEGATIVE. RECOMMENDATION: Routine annual follow-up in 1 Year A letter with findings and recommendations will be mailed to the patient. Reading Location: [id number]
== END | disposition home or self-care (01) ==
PROVIDERS: PCP Family Medicine; Referring Provider Family Medicine; Visit Provider Family Medicine
DX: Z12.31 Encounter for screening mammogram for malignant neoplasm of breast (principal)
CPT/HCPCS: 77063; 77067

== ENCOUNTER → 2024-09-15 | Outpatient (CLI) | payer OTHER, SELFPAY ==
[2024-09-15 11:38] LABS: Barbiturate Urine NEGATIVE (< 200 ng/mL); Benzodiazepine Urine NEGATIVE (< 200 ng/mL); PCP Urine NEGATIVE (< 25 ng/mL); THC Urine NEGATIVE (< 50 ng/mL)
== END | disposition home or self-care (01) ==
LOC: LAB 09:42
PROVIDERS: PCP Family Medicine; Referring Provider Anesthesiology Pain Medicine; Visit Provider Anesthesiology Pain Medicine
DX: F11.20 Opioid dependence, uncomplicated (principal)
CPT/HCPCS: 80307

== ENCOUNTER → 2024-10-22 | Outpatient (CLI) | payer OTHER, SELFPAY ==
--- NOTE | 2024-10-22 15:30 | RAD_ITS ---
PROCEDURE: ABD INC DECUB AND/OR ERECT 10/22/2024 REASON FOR EXAM: ABDOMINAL PAIN TECHNIQUE: Procedure Code: RADABDMV Modality: DX Procedure: ABD INC DECUB AND/OR ERECT COMPARISON: None FINDINGS: Bowel gas: There is a large amount of ascending colon stool. No evidence of bowel obstruction. Calcifications: No pathologic calcifications. Bones: Mild degenerative disc disease and scoliosis. Other: A spinal stimulator is noted. RAD/Abd Inc Decub and/or Erect IMPRESSION: Large amount of colonic stool without obstruction. Reading [facility]
[2024-10-22 18:04] LABS: Hematocrit 41.4 % (37-47); Hemoglobin 14.1 g/dL (12.0-15.0); Mean Corp Hgb Conc 34.1 g/dL (32-36); Mean Corpuscular Volume 87.5 fL (81-99); Mean Platelet Vol. 10.4 fl (6.2-12.0); Platelet Count 204 K/mm3 (150-450); RBC Distribution Width CV 13.2 % (11.6-14.6); RBC Distribution Width SD 42.1 fl (35.1-43.9); Red Blood Count 4.73 M/mm3 (4.2-5.4); White Blood Count 5.4 K/mm3 (4.4-11.0)
[2024-10-22 18:30] LABS: AST(SGOT) 17 U/L (<=31); Alanine Aminotransfer ALT/SGPT 10 U/L (<=34); Albumin, Serum 4.4 g/dL (3.5-5.0); Alkaline Phosphatase 57 U/L (35-104); Anion Gap 11 (5-15); BUN 9 mg/dL (4-19); BUN/Creat Ratio 14.8 RATIO (10-20); Calcium,Total 9.7 mg/dL (7.6-11.0); Carbon Dioxide 27.4 mmol/L (21.0-32.0); Chloride 101 mmol/L (98-108); Globulin 3.4 g/dL (2.2-4.2); Glucose 79 mg/dL (70-99); Lipase 25 U/L (13-75); Potassium 3.9 mmol/L (3.3-5.1)
== END | disposition home or self-care (01) ==
LOC: MTLAB 15:29
PROVIDERS: PCP Family Medicine; Referring Provider Family Medicine; Visit Provider Family Medicine
DX: R10.9 Unspecified abdominal pain (principal)
CPT/HCPCS: 36415; 74019; 80053; 83690; 85027

== ENCOUNTER → 2024-11-26 | Outpatient (CLI) | payer OTHER, SELFPAY ==
--- NOTE | 2024-11-26 15:45 | RAD_ITS ---
PROCEDURE: HIP, UNI W/ PELVIS 2-3 VIEWS 11/26/2024 REASON FOR EXAM: HIP PAIN TECHNIQUE: Procedure Code: RADHP Modality: DX Procedure: HIP, UNI W/ PELVIS 2-3 VIEWS Laterality: Right COMPARISON: Lumbar spine series of 08/05/2023. RAD/HIP, UNI W/ Pelvis 2-3 Views IMPRESSION: The visualized lower lumbar spine again shows significant degenerative disc dis ease. Minimal sacroiliac joint degenerative changes are seen. Limited imaging of the left hip demonstrates mild degenerative changes. Mild right hip joint degenerative changes are seen, most prominent laterally. No definite joint space narrowing is noted. No evidence of femoral head osteonecrosis. No acute fracture or dislocation is seen. If clinical concern persists, short-term follow-up imaging may be obtained to r ule out a currently occult fracture. Reading Location: [place] [id number]
== END | disposition home or self-care (01) ==
LOC: MTRAD 15:42
PROVIDERS: PCP Family Medicine; Referring Provider Family Medicine; Visit Provider Family Medicine
DX: M25.551 Pain in right hip (principal)
CPT/HCPCS: 73502